=== PATIENT | male | born 1970 ===

== ENCOUNTER 2020-11-30 12:25 | Outpatient (REF) | payer MEDICAID, SELFPAY ==
[2020-11-30 13:59] LABS: Troponin-I High Sensitivity 4.6 ng/L (<3.5-35.0)
== END 2020-11-30 12:26 | disposition home or self-care (01) ==
LOC: HO.LAB 12:25
PROVIDERS: PCP Nurse Practitioner Community Health; Referring Provider Nurse Practitioner Community Health; Visit Provider Internal Medicine Cardiovascular Disease
DX: R07.9 Chest pain, unspecified (principal); I10 Essential (primary) hypertension
CPT/HCPCS: 36415; 84484; 93005; 99212

== ENCOUNTER → 2021-01-10 07:27 | Outpatient (REF) | payer MEDICAID, SELFPAY ==
--- NOTE | 2021-01-10 07:39 | CA_ITS ---
Transthoracic Echocardiogram Patient (Last, First, Middle): Bib Arriola, Gender: Male Date of : 1970 Age: 50 Procedure Date: 01/10/2021 Procedure Type: Transthoracic Echocardiogram Location: OP Height: 180.34 cm Weight: 113.4 kg BSA: 2.32 m2 Heart Rate: bpm BP: 6 / 80 mmHg Business Leader: Referring MD: Bulmaro Rangel MD Symptoms: R07.9 - Chest pain, unspecified Study Quality: Good ECG Rhythm: Sinus with extra beats Conclusions: - Normal left ventricular size and systolic function. - Diastolic function is normal for age. - Mildly increased right ventricular cavity size. There is normal right ventricular systolic function. - There is mild dilatation of the ascending aorta. Findings Left Ventricle Normal left ventricular size and systolic function. There is mildly increased left ventricular wall thickness. The visually estimated ejection fraction is between 60-65%. There is no evidence of regional wall motion abnormalities. Diastolic function is normal for age. Right Ventricle Mildly increased right ventricular cavity size. There is normal right ventricular systolic function. Atria Both atria are normal in size. Aortic Valve Normal aortic valve structure and function. There is no aortic valve stenosis. There is no aortic valve regurgitation. Mitral Valve Normal mitral valve structure and function. There is no mitral valve regurgitation. There is no mitral valve stenosis. Pulmonic Valve Normal pulmonic valve structure and function. There is trace pulmonic valve regurgitation. Tricuspid Valve Normal tricuspid valve structure and function. There is trace tricuspid valve regurgitation. Normal right atrial pressure. There is no evidence of pulmonary hypertension. Great Vessels There is mild dilatation of the ascending aorta. The visualized portions of the pulmonary artery and branches are normal. Venous The inferior vena cava is normal in size and collapses greater than 50% with inspiration. Pericardium/Pleural There is no evidence of pericardial effusion. Prior Study Comparison Changes noted compared to prior study dated: 02/16/2019. Mild dilation of aorta. In some views RV appears mildly dilated. Measurements 2D Linear Measurements IVSd: 1.23 0.6-0.9/0.6-1.0 cm LVIDd: 4.32 3.9-5.3/4.2-5.9 cm LVIDd Index: 1.86 2.4-3.2/2.2-3.1 cm/m2 LVIDs: 2.82 2.0-3.6 cm LVPWd: 1.23 0.7-1.1 cm Ao Root: 3.20 2.1-3.5 cm LA Diam: 4.40 2.7-3.8/3.0-4.0 cm LAIDs Index: 1.90 1.5-2.3 cm/m2 LV Mass: 240.29 67-162/88-224 g LV Mass Index: 103.57 43-95/49-115 g/m2 LVOT Diam: 2.10 3.0+(-)1.3 cm Mitral Valve MV Pk E: 0.75 MV PK A: 0.73 MV Decel Time: 190.00 E/A: 1.00 E'Lateral: 12.10 E'Medial: 6.74 E/E' Med: 11.10 E/E' Lat: 6.20 PHT: 56.00 MVA PHT: 3.93 Decel Howard: 3.93 Aortic Valve AoV Pk Ervin: 1.33 AoV Mn Ervin: 0.86 AoV VTI: 0.33 AoV Pk Grad: 7.00 Aov Mn Grad: 4.00 KRISTINE Cont.VTI: 2.47 LVOT LVOT Pk Ervin: 0.99 LVOT Mn Ervin: 0.63 LVOT VTI: 0.23 LVOT Pk Grad: 4.00 LVOT Mn Grad: 2.00 LVOT Diam: 2.10 LVOT Area: 3.46 Diastolic Function MV Pk E: 0.75 MV Pk A: 0.73 E/A: 1.00 E'Medial: 6.74 E/E' Med: 11.10 E' Laterial: 12.10 E/E' Lat: 6.20 Tricuspid Valve TR Pk Ervin: 2.33 TR Pk Grad: 22.00 RVSP: 26.00 Great Vessels Aorta Ao Root-2D: 3.20 2.0-3.7 cm Ao Asc: 3.50 2.1-3.4 cm Pulmonary Valve PV Pk Ervin: 1.13 Peak PV Grad: 5.00 Updated in Other Vendor System with Status of Final Bulmaro Rangel MD electronically signed on 01/11/2021 9:10:55 AM with status of Final
== END ==
LOC: HO.CARD 07:27
PROVIDERS: PCP Nurse Practitioner Community Health; Visit Provider Internal Medicine Cardiovascular Disease
DX: R07.9 Chest pain, unspecified (principal)
CPT/HCPCS: 93306

== ENCOUNTER → 2021-01-11 09:11 | Outpatient (BNVA) | payer MEDICAID, SELFPAY | PROVIDERS: PCP Nurse Practitioner Community Health; Referring Provider Nurse Practitioner Community Health; Visit Provider Internal Medicine Cardiovascular Disease | DX: I10 Essential (primary) hypertension (principal); R55 Syncope and collapse; G47.30 Sleep apnea, unspecified | CPT/HCPCS: 99212 ==

== ENCOUNTER 2021-01-25 21:40 | Observation (INO) | payer MEDICAID, SELFPAY ==
--- NOTE | ~2021-01-25 | XR_ITS ---
EXAMINATION: XR CHEST CLINICAL INFORMATION: Chest pain COMPARISON: 03/29/2019 TECHNIQUE: Frontal view of the chest was obtained. FINDINGS: Lungs are mildly hypoinflated compared to the prior exam. Again seen is anterior cervical fusion spine hardware. Otherwise, no significant abnormality is noted involving the heart, lungs, mediastinum, bony thorax or soft tissues. XR/XR chest 1V IMPRESSION: No acute intrathoracic disease
[2021-01-25 21:43] VITALS: BP 154/77; PULSE 72; RESP 18; TEMP 36.6; O2SAT 96; BMI 35.1
--- NOTE | 2021-01-25 21:48 | ECG_ITS ---
Test Reason : CP Blood Pressure : / mmHG Vent. Rate : 074 BPM Atrial Rate : 074 BPM P-R Int : 124 ms QRS Dur : 098 ms QT Int : 394 ms P-R-T Axes : 036 021 -03 degrees QTc Int : 437 ms Sinus rhythm with frequent Premature ventricular complexes Nonspecific T wave abnormality Inferior leads Lateral leads Abnormal ECG When compared with ECG of 29-MAR-2019 19:31, Premature ventricular complexes are now Present T wave inversion more evident in Inferior leads Referred By: Generic ED Physician Electronically Signed By:ANTONIO BLANCO MD
--- NOTE | 2021-01-25 22:12 | ED_ITS ---
HPI - Chest Pain General Chief Complaint: Chest Pain Stated Complaint: nausea,chest pain Time Seen by Provider: 01/25/21 22:12 Source: patient Mode of arrival: ambulatory Limitations: no limitations History of Present Illness HPI narrative: Patient's history of vasovagal syncope, hypertension had a Holter monitoring done in 2019 which showed monomorphic PVCs stress test was negative headache 2D echo which was normal LV function with mild right ventricular dilatation with questionable sleep apnea syndrome dosing the head custodian 2 weeks ago comes here for 3 days of nausea, just prior to arrival around 21:00 while is resting notice episode of palpitation lasted for few seconds associated with chest pain going to the neck patient got scared at this time denies any chest pain or palpitation no dizziness no loss of consciousness no syncope Related Data Home Medications Medication Instructions Recorded Confirmed amlodipine 5 mg tablet 5 mg PO DAILY 11/30/20 01/25/21 atorvastatin 20 mg tablet 20 mg PO DAILY 11/30/20 01/25/21 cetirizine 10 mg capsule (Zyrtec) 10 mg PO DAILY 11/30/20 01/25/21 metformin 750 mg tablet,extended 750 mg PO BID tab 11/30/20 01/25/21 release 24 hr meloxicam 15 mg tablet 1 tab PO DAILY 01/25/21 01/25/21 Allergies Allergy/AdvReac Type Severity Reaction Status Date / Time No Known Allergies Allergy Verified 01/25/21 21:43 [No Known Allergies*] Review of Systems Review of Systems: Yes all other systems are reviewed and are negative PMFSH Past Medical History Medical History Syncope Surgical History H/O neck surgery Hx of hernia repair Family History Family History Father Myocardial infarct Diabetes CVD (cardiovascular disease) Mother Diabetes Social History Social History Alcohol intake: never Patient Tobacco Use Status: Never used Tobacco Use of substances other than those prescribed or required for medical reasons: No Substance Use Type: Marijuana Advance Directives: No Advance Directives Information Provided: No Physical Exam Vital Signs: Vital Signs: Last Vital Signs Temp 98 F 01/25/21 21:43 Pulse 72 01/25/21 21:43 Resp 18 01/25/21 21:43 BP 154/77 H 01/25/21 21:43 Pulse Ox 96 01/25/21 21:43 Body Mass Index 35.1 Appearance: Alert. Oriented X3. No acute distress. Eyes: PERRLA, No Nystagmus ENT: Pharynx normal. Oral Mucosa moist Neck: Normal inspection. Neck supple. CVS: Normal heart rate and rhythm. Pulses normal. Occasional PVCs Respiratory: No respiratory distress. Equal air entry bilateral, no wheezing/rales/rhonchi Abdomen: Soft and nontender. Bowel sounds are present, no mass palpable, no CVA tenderness Skin: Skin warm and dry. Normal skin color. Normal skin turgor. Extremities: No lower extremity edema. No calf tenderness Neuro: Oriented X 3. No motor deficit. No sensory deficit.No cerebellar signs , cranial nerves II-XII intact MDM - Chest Pain MDM Narrative Medical decision making narrative: Patient with episode of palpitation with chest discomfort likely had a run of PVCs during stay in the ER patient has unifocal PVCs some time had bigeminy rectal is normal. Case discussed with Dr. Rangel head custodian plan to admit as he never had similar symptoms in the past for further evaluation of palpitation Medical Records Data Attestation: I reviewed the patient's medical records. Lab Data Attestation: I reviewed the patient's lab results. Result diagrams: 01/25/21 22:37 01/25/21 22:37 Labs: Lab Results 01/25/21 01/25/21 01/25/21 Range/Units 22:37 22:37 22:37 WBC 11.8 H (4.8-10.8) X10*3/uL RBC 4.56 L (4.60-5.80) X10*6/uL Hgb 14.4 (14.0-18.0) g/dl Hct 39.8 L (42-52) % MCV 87.3 (80-98) fL MCH 31.6 (27.0-33.0) pg MCHC 36.2 H (31.0-36.0) g/dl RDW 12.0 (11.0-16.0) % Plt Count 253 (160-400) X10*3/uL MPV 10.1 (9.4-12.4) fL Immature Gran % (Auto) 0.3 (0.0-0.4) % Neut % (Auto) 58.0 (45-73) % Lymph % (Auto) 31.6 (20-40) % [place] % (Auto) 7.9 (2-11) % Eos % (Auto) 1.9 (0-4) % Baso % (Auto) 0.3 (0-2) % Lymph # (Auto) 3.7 (1.2-4.9) X10*3/uL [place] # (Auto) 0.9 (0.1-1.2) X10*3/uL Eos # (Auto) 0.2 (0.0-0.4) X10*3/uL Baso # (Auto) 0.0 (0.0-0.2) X10*3/uL Abs Immat Gran (auto) 0.04 H (0.00-0.03) X10*3/uL Absolute Neuts (auto) 6.8 (2.0-8.3) X10*3/uL Absolute Nucleated RBC 0.000 (0.0-0.012) X10*3/uL Nucleated RBC % (auto) 0.0 (0.0-0.2) /100WBC Sodium 137 (135-145) mmol/L Potassium 3.8 (3.3-5.1) mmol/L Chloride 103 (96-108) mmol/L Carbon Dioxide 20 L (22-29) mmol/L Anion Gap 18 (12-20) BUN 14 (9-16) mg/dL Creatinine 1.04 (0.5-1.4) mg/dL Estim Creat Clear Calc 110.4 Estimated GFR > 60 Random Glucose 309 H (60-115) mg/dL Calcium 9.7 (8.4-10.2) mg/dL Total Bilirubin 0.4 (0.0-1.0) mg/dL AST 14 (5-37) U/L ALT 16 (0-40) U/L Alkaline Phosphatase 85 (39-117) U/L Troponin I High Sens 4.6 (<3.5-35.0) ng/L Total Protein 7.1 (6.5-8.0) g/dL Albumin 4.2 (3.5-5.0) g/dL COVID-19 ([facility]) (Negative) COVID-19 Clin Com 01/25/21 Range/Units 22:37 WBC (4.8-10.8) X10*3/uL RBC (4.60-5.80) X10*6/uL Hgb (14.0-18.0) g/dl Hct (42-52) % MCV (80-98) fL MCH (27.0-33.0) pg MCHC (31.0-36.0) g/dl RDW (11.0-16.0) % Plt Count (160-400) X10*3/uL MPV (9.4-12.4) fL Immature Gran % (Auto) (0.0-0.4) % Neut % (Auto) (45-73) % Lymph % (Auto) (20-40) % [place] % (Auto) (2-11) % Eos % (Auto) (0-4) % Baso % (Auto) (0-2) % Lymph # (Auto) (1.2-4.9) X10*3/uL [place] # (Auto) (0.1-1.2) X10*3/uL Eos # (Auto) (0.0-0.4) X10*3/uL Baso # (Auto) (0.0-0.2) X10*3/uL Abs Immat Gran (auto) (0.00-0.03) X10*3/uL Absolute Neuts (auto) (2.0-8.3) X10*3/uL Absolute Nucleated RBC (0.0-0.012) X10*3/uL Nucleated RBC % (auto) (0.0-0.2) /100WBC Sodium (135-145) mmol/L Potassium (3.3-5.1) mmol/L Chloride (96-108) mmol/L Carbon Dioxide (22-29) mmol/L Anion Gap (12-20) BUN (9-16) mg/dL Creatinine (0.5-1.4) mg/dL Estim Creat Clear Calc Estimated GFR Random Glucose (60-115) mg/dL Calcium (8.4-10.2) mg/dL Total Bilirubin (0.0-1.0) mg/dL AST (5-37) U/L ALT (0-40) U/L Alkaline Phosphatase (39-117) U/L Troponin I High Sens (<3.5-35.0) ng/L Total Protein (6.5-8.0) g/dL Albumin (3.5-5.0) g/dL COVID-19 ([facility]) Negative (Negative) COVID-19 Clin Com See Note ECG Data ECG #1: Attestation: I personally reviewed and interpreted this ECG as follows: Interpretation: Normal sinus rhythm heart rate 74 beats per minute unifocal frequent PVCs, nonspecific ST T wave changes no acute ischemia Discharge Plan Discharge Clinical Impression: Palpitations Chest pain Qualifiers: Chest pain type: precordial pain Qualified Code(s): R07.2 - Precordial pain Patient Disposition: Admitted As Inpatient
[2021-01-25 22:43] LABS: Basophils Percent Auto 0.3 % (0-2); Eosinophils Absolute Auto 0.2 X10*3/uL (0.0-0.4); Eosinophils Percent Auto 1.9 % (0-4); Hematocrit 39.8 % (42-52); Hemoglobin 14.4 g/dl (14.0-18.0); Imm Gran Abs Auto 0.04 X10*3/uL (0.00-0.03); Imm Gran Pct Auto 0.3 % (0.0-0.4); Lymphocytes Absolute Auto 3.7 X10*3/uL (1.2-4.9); Lymphocytes Percent Auto 31.6 % (20-40); Mean Corpuscular HGB Conc 36.2 g/dl (31.0-36.0); Mean Corpuscular Hemoglobin 31.6 pg (27.0-33.0); Mean Corpuscular Volume 87.3 fL (80-98); Mean Platelet Volume 10.1 fL (9.4-12.4); Monocytes Absolute Auto 0.9 X10*3/uL (0.1-1.2); Monocytes Percent Auto 7.9 % (2-11); Neutrophils Absolute Auto 6.8 X10*3/uL (2.0-8.3); Platelet Count 253 X10*3/uL (160-400); Red Blood Count 4.56 X10*6/uL (4.60-5.80); White Blood Count 11.8 X10*3/uL (4.8-10.8)
[2021-01-25 22:44] LABS: MANUAL DIFF FLAG NO
[2021-01-25 22:58] LABS: COVID-19 Test Negative (Negative); IDNOW Serial# 55D5AD1C
[2021-01-25 23:05] LABS: Troponin-I High Sensitivity 4.6 ng/L (<3.5-35.0)
[2021-01-25 23:10] LABS: Alanine Aminotransferase 16 U/L (0-40); Albumin Level 4.2 g/dL (3.5-5.0); Alkaline Phosphatase 85 U/L (39-117); Anion Gap 18 (12-20); Aspartate Amino Transferase 14 U/L (5-37); Bilirubin Total 0.4 mg/dL (0.0-1.0); Blood Urea Nitrogen 14 mg/dL (9-16); Calcium 9.7 mg/dL (8.4-10.2); Carbon Dioxide 20 mmol/L (22-29); Chloride 103 mmol/L (96-108); Creatinine Clr Calc Pharmacy 110.4; Estimated Glomerular Filt Rate > 60; Glucose Random 309 mg/dL (60-115); Potassium 3.8 mmol/L (3.3-5.1); Sodium 137 mmol/L (135-145); Total Protein 7.1 g/dL (6.5-8.0)
--- NOTE | 2021-01-25 23:39 | PM.IMHP ---
History of Present Illness Date of Service: 01/25/21 Chief Complaint: Chest pain/palpitations 50-year-old male with a past medical history of hypertension, hyperlipidemia, diabetes, history of COVID-19 infection, history of PVCs; presented to the hospital today with a chief complaint of palpitations/chest discomfort. Patient reported that he was sitting in his recliner and suddenly felt heart racing followed by he had mild chest discomfort; pressure-like; nonradiating no associated lightheadedness dizziness or diaphoresis. Denies any associated nausea vomiting or diarrhea. Denies any urinary symptoms. Symptoms currently resolved. Review of all other systems is negative except mentioned above ER course: Per ER team patient is benign exam; EKG was nonischemic except for noted PVCs; troponins are flat; discussed with cardiology Dr. mi who recommended admission for further evaluation. [facility] Medical History Syncope Family History Father Myocardial infarct Diabetes CVD (cardiovascular disease) Mother Diabetes Pertinent family history: As mentioned above Surgical History H/O neck surgery Hx of hernia repair Social History Alcohol intake: never Patient Tobacco Use Status: Never used Tobacco Use of substances other than those prescribed or required for medical reasons: No Substance Use Type: Marijuana Advance Directives: No Advance Directives Information Provided: No Meds Allergies Allergy/AdvReac Type Severity Reaction Status Date / Time No Known Allergies Allergy Verified 01/25/21 21:43 [No Known Allergies*] Active Medications: Current Medications Acetaminophen (Acetaminophen 325 Mg Tablet) 650 mg PO Q6H PRN PRN Reason: Pain, Mild (Pain Scale 1-3) Enoxaparin Sodium (Enoxaparin Sodium 40 Mg/0.4 Ml Syringe) 40 mg SUBCUT Q24H REGULO Sodium Chloride (Ns) 1,000 mls @ 75 mls/hr IVCONT .[id number] REGULO Melatonin (Melatonin 3 Mg Tablet) 6 mg PO BEDTIME PRN PRN Reason: Insomnia Nitroglycerin (Nitroglycerin 0.4 Mg Tab.Subl) 0.4 mg SUBLINGUAL Q5MX3 PRN PRN Reason: Chest Pain Senna (Sennosides 8.6 Mg Tablet) 17.2 mg PO BEDTIME PRN PRN Reason: Constipation Sodium Chloride (0.9 % Sodium Chloride Flush 3 Ml Syringe) 3 ml IVFLUSH QSHIFT [facility] Home Medications Medication Instructions Recorded Confirmed Last Taken Type amlodipine 5 mg tablet 5 mg PO DAILY 11/30/20 01/25/21 01/25/21 History atorvastatin 20 mg tablet 20 mg PO DAILY 11/30/20 01/25/21 01/25/21 History cetirizine 10 mg capsule (Zyrtec) 10 mg PO DAILY 11/30/20 01/25/21 01/25/21 History metformin 750 mg tablet,extended 750 mg PO BID tab 11/30/20 01/25/21 01/25/21 History release 24 hr meloxicam 15 mg tablet 1 tab PO DAILY 01/25/21 01/25/21 01/25/21 History Physical Exam Vital Signs and Narrative: Vital Signs: Last Vital Signs Temp 98 F 01/25/21 21:43 Pulse 72 01/25/21 21:43 Resp 18 01/25/21 21:43 BP 154/77 H 01/25/21 21:43 Pulse Ox 96 01/25/21 21:43 Body Mass Index 35.1 Gen: Appears be in no acute distress HEENT: NCAT, Moist mucosa. Pulmonary: Vesicular breath sounds, fair air entry CVS: Normal S1-S2 Abdomen: BS+, Soft, Nontender Extremities: Warm well perfused Neuro: Alert and awake. Results Labs CBC and Chem 7: 01/25/21 22:37 01/25/21 22:37 Labs: Laboratory Results - last 24 hr 01/25/21 01/25/21 01/25/21 22:37 22:37 22:37 MCV 87.3 MCH 31.6 MCHC 36.2 H RDW 12.0 Plt Count 253 MPV 10.1 Immature Gran % (Auto) 0.3 Neut % (Auto) 58.0 Lymph % (Auto) 31.6 [place] % (Auto) 7.9 Eos % (Auto) 1.9 Baso % (Auto) 0.3 Lymph # (Auto) 3.7 [place] # (Auto) 0.9 Eos # (Auto) 0.2 Baso # (Auto) 0.0 Abs Immat Gran (auto) 0.04 H Absolute Neuts (auto) 6.8 Absolute Nucleated RBC 0.000 Nucleated RBC % (auto) 0.0 Anion Gap 18 Estim Creat Clear Calc 110.4 Estimated GFR > 60 Random Glucose 309 H Calcium 9.7 Total Bilirubin 0.4 AST 14 ALT 16 Alkaline Phosphatase 85 Troponin I High Sens 4.6 Total Protein 7.1 Albumin 4.2 COVID-19 ([facility]) COVID-19 Clin Com 01/25/21 22:37 MCV MCH MCHC RDW Plt Count MPV Immature Gran % (Auto) Neut % (Auto) Lymph % (Auto) [place] % (Auto) Eos % (Auto) Baso % (Auto) Lymph # (Auto) [place] # (Auto) Eos # (Auto) Baso # (Auto) Abs Immat Gran (auto) Absolute Neuts (auto) Absolute Nucleated RBC Nucleated RBC % (auto) Anion Gap Estim Creat Clear Calc Estimated GFR Random Glucose Calcium Total Bilirubin AST ALT Alkaline Phosphatase Troponin I High Sens Total Protein Albumin COVID-19 ([facility]) Negative COVID-19 Clin Com See Note Imaging Radiologist's Impressions: Impressions Chest X-Ray 01/25/21 21:48 IMPRESSION: No acute intrathoracic disease Assessment and Plan (1) Palpitations: Status: Acute (2) Chest pain: Qualifiers: Chest pain type: precordial pain Qualified Code(s): R07.2 - Precordial pain Status: Acute (3) Diabetes: Status: Acute 50-year-old male with a past medical history of hypertension, hyperlipidemia, diabetes, history of COVID-19 infection, history of PVCs; presented to the hospital today with a chief complaint of palpitations/chest discomfort. Palpitations/chest discomfort: EKG showed normal sinus rhythm/PVCs. Telemetry Cycle cardiac enzymes Patient's echocardiogram in 01/10/2021 showed Normal LV and RV function; There is mildly increased left ventricular wall thickness.? EF 60-65%.? Mildly increased right ventricular cavity size.? Cardiology consult Sublingual nitroglycerin p.r.n. d dimer pending History of hypertension/hyperlipidemia: Continue home amlodipine/statin History of diabetes: Insulin sliding scale DVT prophylaxis: Lovenox Code status: Full code Quality Stroke Does the patient have a stroke diagnosis?: No VTE Prior VTE?: No VTE Risk Level:: Medical - moderate - high VTE Device Contraindication: Treatment Not Indicated VTE Drug Contraindication: N/A - Med Ordered
[2021-01-26] VITALS (9 sets, daily range): BP systolic 139–172; BP diastolic 78–91; PULSE 66–80; RESP 16; TEMP 36.3; O2SAT 98
[2021-01-26] MEDS: 0.9 % Sodium Chloride 1,000 ML 75 ML IVCONT (00:06)
[2021-01-26] MEDS: amLODIPine Besylate 5 MG TABLET PO ×2 (01:02→11:45)
[2021-01-26] MEDS: Enoxaparin Sodium 40 MG/0.4 ML SYRINGE SUBCUT (01:02)
[2021-01-26] MEDS: 0.9 % Sodium Chloride Flush 3 ML SYRINGE IVFLUSH ×2 (01:05→09:52)
[2021-01-26 03:11] LABS: MANUAL DIFF FLAG NO
[2021-01-26 03:13] LABS: Basophils Percent Auto 0.3 % (0-2); Eosinophils Absolute Auto 0.3 X10*3/uL (0.0-0.4); Eosinophils Percent Auto 2.6 % (0-4); Hemoglobin 13.8 g/dl (14.0-18.0); Imm Gran Abs Auto 0.03 X10*3/uL (0.00-0.03); Imm Gran Pct Auto 0.3 % (0.0-0.4); Lymphocytes Absolute Auto 3.9 X10*3/uL (1.2-4.9); Lymphocytes Percent Auto 35.8 % (20-40); Mean Corpuscular HGB Conc 35.4 g/dl (31.0-36.0); Mean Corpuscular Hemoglobin 31.4 pg (27.0-33.0); Mean Corpuscular Volume 88.6 fL (80-98); Mean Platelet Volume 9.9 fL (9.4-12.4); Monocytes Absolute Auto 0.9 X10*3/uL (0.1-1.2); Monocytes Percent Auto 8.2 % (2-11); Neutrophils Absolute Auto 5.7 X10*3/uL (2.0-8.3); Neutrophils Percent Auto 52.8 % (45-73); Platelet Count 231 X10*3/uL (160-400); Red Cell Distribution Width 12.1 % (11.0-16.0); White Blood Count 10.9 X10*3/uL (4.8-10.8)
[2021-01-26 03:22] LABS: D Dimer < 200 NG/ML
[2021-01-26 03:40] LABS: Anion Gap 12 (12-20); Blood Urea Nitrogen 13 mg/dL (9-16); Carbon Dioxide 25 mmol/L (22-29); Chloride 105 mmol/L (96-108); Estimated Glomerular Filt Rate > 60; Glucose Random 183 mg/dL (60-115); Potassium 3.8 mmol/L (3.3-5.1); Sodium 138 mmol/L (135-145)
[2021-01-26 07:20] LABS: Glucose, Whole Blood 182 mg/dL (60-115)
[2021-01-26] MEDS: Insulin Lispro 100 UNIT/ML 3 ML VIAL SUBCUT (07:21)
--- NOTE | 2021-01-26 08:15 | PC.NURSE ---
pt CBG checked before breakfast, 182. unable to document in computer.
[2021-01-26 09:30] LABS: Thyroid Stimulating Hormone 1.13 uIU/mL (0.32-4.0)
[2021-01-26] MEDS: Aspirin 81 MG TAB.CHEW PO (09:52)
[2021-01-26] MEDS: Loratadine 10 MG TABLET PO (09:52)
--- NOTE | 2021-01-26 09:55 | MHC.CM.PN ---
Attempted to meet with patient in regards to discharge planning. Nursing care currently being provided. Will attempt to meet again.Continue to monitor for d/c needs.
--- NOTE | 2021-01-26 11:11 | PM.CNCAR ---
History of Present Illness History of Present Illness Date of Service: 01/26/21 Requesting physician: Sami Garrett Chief complaint: Chest pain Narrative: 50-year-old gentleman was background history of hypertension, syncope and palpitations who is presenting with sharp left-sided chest pain. He said he was not feeling well and diarrhea. Yesterday he was lying down and after lying down his left side for 10 minutes he had sharp shooting sensation from the chest to the left side of the neck lasting for 1 sec. He said he was very concerned and decided to come to the emergency department. He has previous history of PVCs and has stress testing in the past which was normal. Echocardiography showed mildly abnormal right ventricle and he was advised to undergo sleep study. He previously had syncope which is likely vasovagal syncope and he is waiting to undergo tilt-table testing. Labs and EKG reviewed and no significant concern is noticed. [facility] Past Medical History Medical History Syncope Family History Family History Father Myocardial infarct Diabetes CVD (cardiovascular disease) Mother Diabetes Surgical History Surgical History H/O neck surgery Hx of hernia repair Social History Social History Alcohol intake: never Patient Tobacco Use Status: Never used Tobacco Use of substances other than those prescribed or required for medical reasons: No Substance Use Type: Marijuana Advance Directives: No Advance Directives Information Provided: No Meds Allergies Allergy/AdvReac Type Severity Reaction Status Date / Time No Known Allergies Allergy Verified 01/25/21 21:43 [No Known Allergies*] Active Medications: Current Medications Acetaminophen (Acetaminophen 325 Mg Tablet) 650 mg PO Q6H PRN PRN Reason: Pain, Mild (Pain Scale 1-3) Aspirin (Aspirin 81 Mg Tab.Chew) 81 mg PO DAILY [facility] Last Admin: 01/26/21 09:52 Dose: 81 mg Documented by: Atorvastatin Calcium (Atorvastatin Calcium 20 Mg Tablet) 20 mg PO BEDTIME [facility] Dextrose (Dextrose 50 % 25 Gm/50 Ml Vial) 25 gm IVPUSH Q15M PRN; Protocol PRN Reason: per Hypoglycemia Standing Ord. Enoxaparin Sodium (Enoxaparin Sodium 40 Mg/0.4 Ml Syringe) 40 mg SUBCUT Q24H [facility] Last Admin: 01/26/21 01:02 Dose: 40 mg Documented by: Glucose (Glucose Gel 15 Gm Gel..Gram.) 15 gm PO Q15M PRN; Protocol PRN Reason: per Hypoglycemia Standing Ord. Sodium Chloride (Ns) 1,000 mls @ 75 mls/hr IVCONT .[id number] [facility] Last Admin: 01/26/21 00:06 Dose: 75 mls/hr Documented by: Insulin Human Lispro (Insulin Lispro 100 Unit/Ml 3 Ml Vial) 0 unit SUBCUT QIDACHS [facility]; Protocol Last Admin: 01/26/21 07:21 Dose: 2 unit Documented by: Loratadine (Loratadine 10 Mg Tablet) 10 mg PO DAILY [facility] Last Admin: 01/26/21 09:52 Dose: 10 mg Documented by: Melatonin (Melatonin 3 Mg Tablet) 6 mg PO BEDTIME PRN PRN Reason: Insomnia Nitroglycerin (Nitroglycerin 0.4 Mg Tab.Subl) 0.4 mg SUBLINGUAL Q5MX3 PRN PRN Reason: Chest Pain Senna (Sennosides 8.6 Mg Tablet) 17.2 mg PO BEDTIME PRN PRN Reason: Constipation Sodium Chloride (0.9 % Sodium Chloride Flush 3 Ml Syringe) 3 ml IVFLUSH QSHIFT [facility] Last Admin: 01/26/21 09:52 Dose: 3 ml Documented by: Home Medications Medication Instructions Recorded Confirmed Last Taken Type amlodipine 5 mg tablet 5 mg PO DAILY 11/30/20 01/25/21 01/25/21 History atorvastatin 20 mg tablet 20 mg PO DAILY 11/30/20 01/25/21 01/25/21 History cetirizine 10 mg capsule (Zyrtec) 10 mg PO DAILY 11/30/20 01/25/21 01/25/21 History metformin 750 mg tablet,extended 750 mg PO BID tab 11/30/20 01/25/21 01/25/21 History release 24 hr meloxicam 15 mg tablet 1 tab PO DAILY 01/25/21 01/25/21 01/25/21 History Physical Exam Vital Signs: Vital Signs: Last Vital Signs Temp 97.4 F 01/26/21 06:13 Pulse 74 01/26/21 09:58 Resp 16 01/26/21 06:13 BP 172/85 H 01/26/21 09:58 Pulse Ox 98 01/26/21 06:13 Body Mass Index 35.1 GENERAL APPEARANCE: in no acute distress, pleasant. NECK: no carotid bruit, no jugular venous distention. SKIN: no suspicious lesions, warm and dry. HEART: no murmurs, regular rate and rhythm. LUNGS: clear to auscultation bilaterally. ABDOMEN: soft, nontender. EXTREMITIES: no edema. PERIPHERAL PULSES: equal. NEUROLOGIC: No gross deficits, AAO X 3 Results Labs and Meds Result diagrams: 01/26/21 03:07 01/26/21 03:07 Lab results: Laboratory Results - last 24 hr 01/25/21 01/25/21 01/25/21 22:37 22:37 22:37 WBC 11.8 H RBC 4.56 L Hgb 14.4 Hct 39.8 L MCV 87.3 MCH 31.6 MCHC 36.2 H RDW 12.0 Plt Count 253 MPV 10.1 Immature Gran % (Auto) 0.3 Neut % (Auto) 58.0 Lymph % (Auto) 31.6 [place] % (Auto) 7.9 Eos % (Auto) 1.9 Baso % (Auto) 0.3 Lymph # (Auto) 3.7 [place] # (Auto) 0.9 Eos # (Auto) 0.2 Baso # (Auto) 0.0 Abs Immat Gran (auto) 0.04 H Absolute Neuts (auto) 6.8 Absolute Nucleated RBC 0.000 Nucleated RBC % (auto) 0.0 D-Dimer Sodium 137 Potassium 3.8 Chloride 103 Carbon Dioxide 20 L Anion Gap 18 BUN 14 Creatinine 1.04 Estim Creat Clear Calc 110.4 Estimated GFR > 60 POC Glucose Random Glucose 309 H Calcium 9.7 Total Bilirubin 0.4 AST 14 ALT 16 Alkaline Phosphatase 85 Troponin I High Sens 4.6 Total Protein 7.1 Albumin 4.2 TSH COVID-19 ([facility]) COVID-19 Clin Com 01/25/21 01/26/21 01/26/21 22:37 03:07 03:07 WBC 10.9 H RBC 4.40 L Hgb 13.8 L Hct 39.0 L MCV 88.6 MCH 31.4 MCHC 35.4 RDW 12.1 Plt Count 231 MPV 9.9 Immature Gran % (Auto) 0.3 Neut % (Auto) 52.8 Lymph % (Auto) 35.8 [place] % (Auto) 8.2 Eos % (Auto) 2.6 Baso % (Auto) 0.3 Lymph # (Auto) 3.9 [place] # (Auto) 0.9 Eos # (Auto) 0.3 Baso # (Auto) 0.0 Abs Immat Gran (auto) 0.03 Absolute Neuts (auto) 5.7 Absolute Nucleated RBC 0.000 Nucleated RBC % (auto) 0.0 D-Dimer Sodium 138 Potassium 3.8 Chloride 105 Carbon Dioxide 25 Anion Gap 12 BUN 13 Creatinine 0.87 Estim Creat Clear Calc 132.0 Estimated GFR > 60 POC Glucose Random Glucose 183 H D Calcium 9.0 D Total Bilirubin AST ALT Alkaline Phosphatase Troponin I High Sens Total Protein Albumin TSH 1.13 COVID-19 ([facility]) Negative COVID-19 Clin Com See Note 01/26/21 01/26/21 03:07 07:17 WBC RBC Hgb Hct MCV MCH MCHC RDW Plt Count MPV Immature Gran % (Auto) Neut % (Auto) Lymph % (Auto) [place] % (Auto) Eos % (Auto) Baso % (Auto) Lymph # (Auto) [place] # (Auto) Eos # (Auto) Baso # (Auto) Abs Immat Gran (auto) Absolute Neuts (auto) Absolute Nucleated RBC Nucleated RBC % (auto) D-Dimer < 200 Sodium Potassium Chloride Carbon Dioxide Anion Gap BUN Creatinine Estim Creat Clear Calc Estimated GFR POC Glucose 182 H Random Glucose Calcium Total Bilirubin AST ALT Alkaline Phosphatase Troponin I High Sens Total Protein Albumin TSH COVID-19 ([facility]) COVID-19 Clin Com Imaging Radiologist's impression: Impressions Chest X-Ray 01/25/21 21:48 IMPRESSION: No acute intrathoracic disease Assessment and Plan (1) Non-cardiac chest pain: Status: Acute (2) Palpitations: Status: Acute 50-year-old gentleman presenting with sharp left-sided chest pain which is noncardiac in origin. He previously had stress testing which was normal. He has known PVCs. Blood workup and EKG reviewed. EKG showing premature ventricle complexes. He was having PVCs on telemetry at the time of interview and had no symptoms. I think the sharp pain is not related PVCs think is noncardiac in origin. He has been ruled out. He can go home. Thank you for allowing me to participate in the care of your patient. Please feel free to contact me if you have any questions. Procedures Date of Service Date of Service: 01/26/21
--- NOTE | 2021-01-26 11:33 | P.DS_ITS ---
DS: Providers Provider Date of Service: 01/26/21 Date of admission: 01/25/21 23:36 Primary care physician: Bulmaro Rangel MD Consults: 01/25/21 23:36 Consult to Cardiology Routine Consulting Provider: Bulmaro Rangel Reason for consultation: Chest pain/palpitations DS: Diagnosis Discharge Diagnosis (1) Non-cardiac chest pain: Status: Acute (2) Palpitations: Status: Acute DS: Summary Hospital Course Hospital Course: Chief Complaint: Chest pain/palpitations 50-year-old gentleman was background history of hypertension, syncope and palpitations who is presenting with sharp left-sided chest pain.? He said he was not feeling well and had diarrhea after eating a heavy meal, Yesterday he was lying down and after lying down on his left side for 10 minutes he had sharp shooting sensation from the chest to the left side of the neck lasting for few seconds He said he was very concerned and decided to come to the emergency department.? He has previous history of PVCs and has stress testing in the past which was normal.? In the emergency room EKG and labs showed no acute abnormality other than PVCs on EKG patient admitted for close monitoring and treatment for chest pain. Hospital course Patient admitted due to symptoms of chest pain and palpitation, during course of hospitalization patient did not have recurrent bout of chest discomfort or palpitations tele monitor showed no arrhythmia, chest x-ray showed no acute abnormality and D-dimer less than 200, troponins normal, patient seen by milk deliverer Dr. Rangel and he recommended discharge patient home, since his sharp left-sided chest pain appeared noncardiac in origin and not related to PVCs, patient had a normal stress test in the past and since he had no arrhythmia on tele monitor , he has been recommended to have close outpatient follow-up with Cardiology and return to check with any recurrent bout of chest pain. Time Spent with Patient Time attestation: Total time spent providing and/or coordinating discharge services: Discharge coordination time: Greater than 30 minutes Quality: Stroke Does the patient have a stroke diagnosis?: No Physical Exam Vital Signs: Vital Signs: Last Vital Signs Temp 97.4 F 01/26/21 06:13 Pulse 74 01/26/21 09:58 Resp 16 01/26/21 06:13 BP 172/85 H 01/26/21 09:58 Pulse Ox 98 01/26/21 06:13 Body Mass Index 35.1 General alert oriented x3,no acute distress. Neck supple no JVD. CVS regular rate rhythm, Respiratory lungs clear to auscultation, no respiratory distress, no wheeze, no rhonchi. Gastrointestinal abdomen soft, nontender, bowel sounds audible,no guarding , no rigidity. Extremities no clubbing cyanosis or edema. Neuro nonfocal , speech clear. Skin no rash DS: Data Data Completed and Pending Labs on day of discharge: Laboratory Results - last 24 hr 01/25/21 01/25/21 01/25/21 22:37 22:37 22:37 WBC 11.8 H RBC 4.56 L Hgb 14.4 Hct 39.8 L MCV 87.3 MCH 31.6 MCHC 36.2 H RDW 12.0 Plt Count 253 MPV 10.1 Immature Gran % (Auto) 0.3 Neut % (Auto) 58.0 Lymph % (Auto) 31.6 [place] % (Auto) 7.9 Eos % (Auto) 1.9 Baso % (Auto) 0.3 Lymph # (Auto) 3.7 [place] # (Auto) 0.9 Eos # (Auto) 0.2 Baso # (Auto) 0.0 Abs Immat Gran (auto) 0.04 H Absolute Neuts (auto) 6.8 Absolute Nucleated RBC 0.000 Nucleated RBC % (auto) 0.0 D-Dimer Sodium 137 Potassium 3.8 Chloride 103 Carbon Dioxide 20 L Anion Gap 18 BUN 14 Creatinine 1.04 Estim Creat Clear Calc 110.4 Estimated GFR > 60 POC Glucose Random Glucose 309 H Calcium 9.7 Total Bilirubin 0.4 AST 14 ALT 16 Alkaline Phosphatase 85 Troponin I High Sens 4.6 Total Protein 7.1 Albumin 4.2 TSH COVID-19 ([facility]) COVID-19 Clin Com 01/25/21 01/26/21 01/26/21 22:37 03:07 03:07 WBC 10.9 H RBC 4.40 L Hgb 13.8 L Hct 39.0 L MCV 88.6 MCH 31.4 MCHC 35.4 RDW 12.1 Plt Count 231 MPV 9.9 Immature Gran % (Auto) 0.3 Neut % (Auto) 52.8 Lymph % (Auto) 35.8 [place] % (Auto) 8.2 Eos % (Auto) 2.6 Baso % (Auto) 0.3 Lymph # (Auto) 3.9 [place] # (Auto) 0.9 Eos # (Auto) 0.3 Baso # (Auto) 0.0 Abs Immat Gran (auto) 0.03 Absolute Neuts (auto) 5.7 Absolute Nucleated RBC 0.000 Nucleated RBC % (auto) 0.0 D-Dimer Sodium 138 Potassium 3.8 Chloride 105 Carbon Dioxide 25 Anion Gap 12 BUN 13 Creatinine 0.87 Estim Creat Clear Calc 132.0 Estimated GFR > 60 POC Glucose Random Glucose 183 H D Calcium 9.0 D Total Bilirubin AST ALT Alkaline Phosphatase Troponin I High Sens Total Protein Albumin TSH 1.13 COVID-19 ([facility]) Negative COVID-19 Clin Com See Note 01/26/21 01/26/21 03:07 07:17 WBC RBC Hgb Hct MCV MCH MCHC RDW Plt Count MPV Immature Gran % (Auto) Neut % (Auto) Lymph % (Auto) [place] % (Auto) Eos % (Auto) Baso % (Auto) Lymph # (Auto) [place] # (Auto) Eos # (Auto) Baso # (Auto) Abs Immat Gran (auto) Absolute Neuts (auto) Absolute Nucleated RBC Nucleated RBC % (auto) D-Dimer < 200 Sodium Potassium Chloride Carbon Dioxide Anion Gap BUN Creatinine Estim Creat Clear Calc Estimated GFR POC Glucose 182 H Random Glucose Calcium Total Bilirubin AST ALT Alkaline Phosphatase Troponin I High Sens Total Protein Albumin TSH COVID-19 ([facility]) COVID-19 Clin Com Discharge Plan Discharge Patient Disposition: Home, Self-Care Discharge Diagnosis: Chest pain Referrals: Bulmaro Rangel MD [Primary Care Provider] - 1 Week Discharge Medications: Continued meloxicam 15 mg tablet 1 tab PO DAILY RF: 0 amlodipine 5 mg tablet 5 mg PO DAILY RF: 0 atorvastatin 20 mg tablet 20 mg PO DAILY RF: 0 Zyrtec 10 mg capsule 10 mg PO DAILY RF: 0 metformin 750 mg tablet extended release 24 hr 750 mg PO BID RF: 0 Discharge Orders: Discharge Order (Routine); Ordered 01/26/21 Ordered By: Sami Garrett Diet: low fat, low cholesterol Activity on Discharge: As tolerated Stand Alone Forms: Patient Portal Discharge page Care Plan Goals: Chest pain noncardiac in nature resolved Health Concerns: Continue all home medications follow low-cholesterol diet Plan of Treatment: Follow-up with PCP in next 7-10 days Assessment: as above Discharge Date/Time: 01/26/21 15:02
== END 2021-01-26 15:02 | disposition home or self-care (01) ==
LOC: HO.ED 23:39 → HO.EDOVER 23:42 → HO.IMC 01-26 13:31 → HO.EDOVER 01-26 13:39
PROVIDERS: Admitting Provider Hospitalist; Emergency Provider Internal Medicine; PCP Internal Medicine Cardiovascular Disease; Visit Provider Hospitalist
DX: R07.89 Other chest pain (principal); R00.2 Palpitations; I10 Essential (primary) hypertension; R55 Syncope and collapse; I49.3 Ventricular premature depolarization; Z20.822 Contact with and (suspected) exposure to COVID-19; Z79.4 Long term (current) use of insulin; Z79.899 Other long term (current) drug therapy
CPT/HCPCS: 36415; 71045; 80048; 80053; 82947; 84443; 84484; 85025; 85379; 87635; 93005; 96361; 96372; 96374; 99219; 99285; J1650

== ENCOUNTER → 2021-02-13 14:46 | Outpatient (REF) | payer MEDICAID, SELFPAY | LOC: HO.SL 14:46 | PROVIDERS: PCP Nurse Practitioner Community Health; Visit Provider Internal Medicine Cardiovascular Disease | DX: G47.30 Sleep apnea, unspecified (principal) | CPT/HCPCS: 95806 ==

== ENCOUNTER → 2021-02-28 08:24 | Outpatient (BNVA) | payer MEDICAID, SELFPAY | PROVIDERS: PCP Nurse Practitioner Community Health; Referring Provider Internal Medicine Cardiovascular Disease; Visit Provider Psychiatry & Neurology Neurology | DX: G47.33 Obstructive sleep apnea (adult) (pediatric) (principal); G47.00 Insomnia, unspecified | CPT/HCPCS: 99202 ==

== ENCOUNTER → 2021-04-26 11:26 | Outpatient (BNVA) | payer MEDICAID, SELFPAY | PROVIDERS: PCP Nurse Practitioner Community Health; Referring Provider Nurse Practitioner Community Health; Visit Provider Internal Medicine Cardiovascular Disease | DX: G47.30 Sleep apnea, unspecified (principal); R55 Syncope and collapse; I10 Essential (primary) hypertension | CPT/HCPCS: 99212 ==

== ENCOUNTER → 2021-10-09 11:42 | Outpatient (BNVA) | payer MEDICAID, SELFPAY | PROVIDERS: PCP Nurse Practitioner Community Health; Visit Provider Internal Medicine Cardiovascular Disease | DX: R55 Syncope and collapse (principal); I10 Essential (primary) hypertension; Z79.899 Other long term (current) drug therapy | CPT/HCPCS: 93005; 99212 ==

== ENCOUNTER 2021-11-20 05:32 | Emergency (ER) | payer MEDICAID, SELFPAY ==
--- NOTE | ~2021-11-20 | CT_ITS ---
EXAMINATION: CT ANGIOGRAM OF THE CHEST WITH AND WITHOUT CONTRAST (CT PULMONARY ANGIOGRAM FOR PE) CLINICAL INFORMATION: Reason for Exam r/o pe COMPARISON: None TECHNIQUE: Prior to contrast administration, noncontrast localization images were obtained. Subsequently, multidetector volumetric imaging was performed from the thoracic inlet to below the diaphragms following the administration of 65 mL Omnipaque 350 intravenous contrast. No contrast reaction reported Sagittal, coronal, and MIP oblique sagittal reformatted images were obtained on the CT workstation, uploaded to PACS, and reviewed. This CT examination was performed using dose optimization techniques as appropriate, variously including the following: *Automated exposure control *Adjustment of mA and/or kV according to patient size (this includes techniques or standardized protocols for targeted exams where dose is matched to indication/reason for exam; i.e. extremities or head) *Use of iterative reconstruction technique Total exam dose-length product 481 mGy-cm FINDINGS: QUALITY OF STUDY/CONTRAST BOLUS: Satisfactory. PULMONARY ARTERIES: No central or segmental pulmonary emboli. THORACIC AORTA: No aneurysm or dissection. LUNG: The lungs are well-expanded and clear of acute pneumonic consolidation. There is a 3 mm nodule right upper lobe axial image 186/6 no additional appearing nodules, mass or groundglass density seen. PLEURA: No pleural effusion or pneumothorax. MEDIASTINUM: Heart size and the great vessels are normal caliber. No abnormal size mediastinal or hilar lymph nodes or mass seen. The central trachea and the bronchi widely patent. No pericardial effusion seen. No evidence of septal bowing or right heart strain. CHEST WALL/AXILLA: No axillary or internal mammary lymphadenopathy. OSSEOUS STRUCTURES: No aggressive lytic or sclerotic process seen. There is mild ventral spondylosis lower dorsal spine. UPPER ABDOMEN: Unremarkable. No reflux of contrast into the hepatic veins to suggest elevated right heart pressures. CT/CT angio chest PE protocol IMPRESSION: No evidence of PE, aortic dissection or aneurysm. 3 mm nodule right upper lobe. VTE: negative
--- NOTE | ~2021-11-20 | XR_ITS ---
EXAMINATION: XR CHEST CLINICAL INFORMATION: Chest pain COMPARISON: 01/25/2021 TECHNIQUE: 2 views of the chest were obtained. FINDINGS: Cervical fusion hardware. The lungs are well expanded. There is no focal consolidation, edema, or effusion. No pneumothorax. The cardiomediastinal silhouette is within normal limits. No acute osseous abnormality. XR/XR chest 2V IMPRESSION: Clear lungs.
--- NOTE | 2021-11-20 05:47 | ECG_ITS ---
Test Reason : CP Blood Pressure : / mmHG Vent. Rate : 074 BPM Atrial Rate : 074 BPM P-R Int : 136 ms QRS Dur : 092 ms QT Int : 398 ms P-R-T Axes : 059 014 025 degrees QTc Int : 441 ms Normal sinus rhythm Normal ECG When compared with ECG of 25-JAN-2021 21:58, Premature ventricular complexes are no longer Present Referred By: Generic ED Physician Electronically Signed By:HEIDY HUBER
[2021-11-20 06:00] VITALS: BP 134/78; PULSE 72; RESP 16; TEMP 36.7; O2SAT 98; BMI 34.8
[2021-11-20 06:19] LABS: MANUAL DIFF FLAG NO
[2021-11-20 06:21] LABS: Basophils Percent Auto 0.3 % (0-2); Eosinophils Absolute Auto 0.3 X10*3/uL (0.0-0.4); Eosinophils Percent Auto 3.7 % (0-4); Hematocrit 41.9 % (42.0-52.0); Hemoglobin 14.7 g/dl (14.0-18.0); Imm Gran Abs Auto 0.04 X10*3/uL (0.00-0.03); Imm Gran Pct Auto 0.4 % (0.0-0.4); Lymphocytes Absolute Auto 2.6 X10*3/uL (1.2-4.9); Lymphocytes Percent Auto 28.9 % (20-40); Mean Corpuscular HGB Conc 35.1 g/dl (31.0-36.0); Mean Corpuscular Hemoglobin 31.1 pg (27.0-33.0); Mean Corpuscular Volume 88.6 fL (80.0-98.0); Mean Platelet Volume 9.9 fL (9.4-12.4); Monocytes Absolute Auto 0.7 X10*3/uL (0.1-1.2); Neutrophils Absolute Auto 5.3 x10*3/uL (2.0-8.3); Neutrophils Percent Auto 58.7 % (45-73); Platelet Count 263 X10*3/uL (160-400); Red Blood Count 4.73 X10*6/uL (4.60-5.80); Red Cell Distribution Width 11.9 % (11.0-16.0); White Blood Count 9.1 X10*3/uL (4.8-10.8)
[2021-11-20 06:34] LABS: Anion Gap 16 (12-20); Blood Urea Nitrogen 13 mg/dL (9-16); Calcium 9.2 mg/dL (8.4-10.2); Carbon Dioxide 21 mmol/L (22-29); Chloride 103 mmol/L (96-108); Creatinine Clr Calc Pharmacy 121.6; Estimated Glomerular Filt Rate > 60; Glucose Random 244 mg/dL (60-115); Sodium 136 mmol/L (135-145)
[2021-11-20 06:43] LABS: Troponin-I High Sensitivity < 3.5 ng/L (<3.5-35.0)
[2021-11-20 07:12] VITALS: BP 134/78; PULSE 72; RESP 16; TEMP 36.7; O2SAT 98
--- NOTE | 2021-11-20 07:15 | ED.CHESTPAIN ---
HPI - Chest Pain General Chief Complaint: Chest Pain Stated Complaint: chest pain Time Seen by Provider: 11/20/21 07:09 History of Present Illness HPI narrative: This is 51 years old patient presented to the emergency department with chief complaint of left-sided chest pain, the pain is described as a sharp, he stated that he woke up around 02:00 with this complain he states that he was diaphoretic. He has history of diabetes, hypertension. MD complaint: chest pain Onset (ago): hour(s) (4) Timing of current episode: constant Onset: during rest Pain location: left chest Severity: moderate Quality: sharp Exacerbating factors: nothing Context: recent illness Risk Factors Coronary artery disease risk factors: diabetes and hypertension Thoracic aortic dissection risk factors: none Related Data Home Medications Medication Instructions Recorded Confirmed amlodipine 5 mg tablet 5 mg PO DAILY 11/30/20 10/09/21 atorvastatin 20 mg tablet 20 mg PO DAILY 11/30/20 10/09/21 cetirizine 10 mg capsule (Zyrtec) 10 mg PO DAILY 11/30/20 10/09/21 metformin 750 mg tablet,extended 750 mg PO BID 11/30/20 10/09/21 release 24 hr sitagliptin 100 mg tablet (Januvia) 100 mg PO DAILY 04/26/21 10/09/21 meloxicam 15 mg tablet 15 mg PO DAILY 10/09/21 10/09/21 Allergies Allergy/AdvReac Type Severity Reaction Status Date / Time No Known Allergies Allergy Verified 11/20/21 05:58 [No Known Allergies*] Review of Systems Review of Systems: Yes all other systems are reviewed and are negative Cardiovascular: Cardiovascular: Reports no additional cardiovascular complaints Respiratory: Respiratory: Reports no additional respiratory complaints Musculoskeletal: Musculoskeletal: Reports no additional musculoskeletal complaints Neurologic: Reports system reviewed and no additional complaints, except as documented PMF Past Medical History Medical History Diabetes Palpitations Syncope Surgical History H/O neck surgery Hx of hernia repair Family History Family History Father Myocardial infarct Diabetes CVD (cardiovascular disease) Mother Diabetes Social History Social History Alcohol intake: never Patient Tobacco Use Status: Never used Tobacco Substance Use Type: Marijuana Advance Directives: No Advance Directives Information Provided: Yes Physical Exam Vital Signs: Vital Signs: Last Vital Signs Temp 98.1 F 11/20/21 07:12 Pulse 72 11/20/21 07:12 Resp 16 11/20/21 07:12 BP 134/78 11/20/21 07:12 Pulse Ox 98 11/20/21 07:12 O2 Del Method 11/20/21 07:12 BMI result Body Mass Index 34.8 Const: General: cooperative Nutritional Appearance: well nourished Limitations: no limitations HEENT: Head: Yes normal to inspection General nose exam: Normal external nose present Mouth: Normal oral and palatal mucosa present Throat: Yes posterior oropharynx normal Neck: Neck: Yes normal visual inspection and Yes full ROM Chest: Chest palpation & inspection: normal inspection of the chest Resp: Effort & Inspection: normal respiratory effort Auscultation: clear to auscultation bilaterally Cardio: Jugular venous distension: no JVD Rate: regular rate Rhythm: regular rhythm GI: Inspection: Yes normal to inspection Palpation (GI): Soft to palpation, not firm, nontender and no guarding Auscultation: normal bowel sounds Skin: General skin exam: no rashes or lesions noted, elasticity normal and turgor normal Rashes: no rashes Course Reevaluation(s) Reevaluation #1: delta tropi negative,ct chest negative,pain gone now I think he can be d/c home with follow up with PCP MDM - Chest Pain Medical Records Data Attestation: I reviewed the patient's medical records. Lab Data Attestation: I reviewed the patient's lab results. Result diagrams: 11/20/21 06:14 11/20/21 06:14 Labs: Lab Results 11/20/21 11/20/21 11/20/21 Range/Units 06:14 06:14 06:14 WBC 9.1 (4.8-10.8) X10*3/uL RBC 4.73 (4.60-5.80) X10*6/uL Hgb 14.7 (14.0-18.0) g/dl Hct 41.9 L (42.0-52.0) % MCV 88.6 (80.0-98.0) fL MCH 31.1 (27.0-33.0) pg MCHC 35.1 (31.0-36.0) g/dl RDW 11.9 (11.0-16.0) % Plt Count 263 (160-400) X10*3/uL MPV 9.9 (9.4-12.4) fL Immature Gran % (Auto) 0.4 (0.0-0.4) % Neut % (Auto) 58.7 (45-73) % Lymph % (Auto) 28.9 (20-40) % [place] % (Auto) 8.0 (2-11) % Eos % (Auto) 3.7 (0-4) % Baso % (Auto) 0.3 (0-2) % Lymph # (Auto) 2.6 (1.2-4.9) X10*3/uL [place] # (Auto) 0.7 (0.1-1.2) X10*3/uL Eos # (Auto) 0.3 (0.0-0.4) X10*3/uL Baso # (Auto) 0.0 (0.0-0.2) X10*3/uL Abs Immat Gran (auto) 0.04 H (0.00-0.03) X10*3/uL Absolute Neuts (auto) 5.3 (2.0-8.3) x10*3/uL Absolute Nucleated RBC 0.000 (0.0-0.012) X10*3/uL Nucleated RBC % (auto) 0.0 (0.0-0.2) /100WBC D-Dimer High Sensitivty NG/ML Sodium 136 (135-145) mmol/L Potassium 4.0 (3.3-5.1) mmol/L Chloride 103 (96-108) mmol/L Carbon Dioxide 21 L (22-29) mmol/L Anion Gap 16 (12-20) BUN 13 (9-16) mg/dL Creatinine 0.93 (0.5-1.4) mg/dL Estim Creat Clear Calc 121.6 Estimated GFR > 60 Random Glucose 244 H (60-115) mg/dL Calcium 9.2 (8.4-10.2) mg/dL Troponin I High Sens < 3.5 (<3.5-35.0) ng/L 08/22/22 08/22/22 Range/Units 08:09 08:09 WBC (4.8-10.8) X10*3/uL RBC (4.60-5.80) X10*6/uL Hgb (14.0-18.0) g/dl Hct (42.0-52.0) % MCV (80.0-98.0) fL MCH (27.0-33.0) pg MCHC (31.0-36.0) g/dl RDW (11.0-16.0) % Plt Count (160-400) X10*3/uL MPV (9.4-12.4) fL Immature Gran % (Auto) (0.0-0.4) % Neut % (Auto) (45-73) % Lymph % (Auto) (20-40) % [place] % (Auto) (2-11) % Eos % (Auto) (0-4) % Baso % (Auto) (0-2) % Lymph # (Auto) (1.2-4.9) X10*3/uL [place] # (Auto) (0.1-1.2) X10*3/uL Eos # (Auto) (0.0-0.4) X10*3/uL Baso # (Auto) (0.0-0.2) X10*3/uL Abs Immat Gran (auto) (0.00-0.03) X10*3/uL Absolute Neuts (auto) (2.0-8.3) x10*3/uL Absolute Nucleated RBC (0.0-0.012) X10*3/uL Nucleated RBC % (auto) (0.0-0.2) /100WBC D-Dimer High Sensitivty < 150 NG/ML Sodium (135-145) mmol/L Potassium (3.3-5.1) mmol/L Chloride (96-108) mmol/L Carbon Dioxide (22-29) mmol/L Anion Gap (12-20) BUN (9-16) mg/dL Creatinine (0.5-1.4) mg/dL Estim Creat Clear Calc Estimated GFR Random Glucose (60-115) mg/dL Calcium (8.4-10.2) mg/dL Troponin I High Sens < 3.5 (<3.5-35.0) ng/L Imaging Data CT scan - chest: Radiologist's impression: PLEURA: No pleural effusion or pneumothorax. MEDIASTINUM: Heart size and the great vessels are normal caliber. No abnormal size mediastinal or hilar lymph nodes or mass seen. The central trachea and the bronchi widely patent. No pericardial effusion seen.? No evidence of septal bowing or right heart strain. CHEST WALL/AXILLA: No axillary or internal mammary lymphadenopathy. OSSEOUS STRUCTURES: No aggressive lytic or sclerotic process seen. There is mild ventral spondylosis lower dorsal spine. ? UPPER ABDOMEN: Unremarkable.? No reflux of contrast into the hepatic veins to suggest elevated right heart pressures. CT/CT angio chest PE protocol IMPRESSION: No evidence of PE, aortic dissection or aneurysm. ? 3 mm nodule right upper lobe. ? VTE: negative Dictated By: Jorge Thomson MD Signed By: <Electronically signed by Jorge Thomson MD in [place]> 11/20/2140 DD/ 08 ECG Data ECG #1: Pacemaker model: NSR [address]-t changes no ischemia Discharge Plan Discharge Clinical Impression: Chest pain Patient Disposition: Home, Self-Care Instructions: Chest Pain (DC) Additional Instructions: Follow-up with your primary care physician return if you worse Prescriptions: No Action meloxicam 15 mg tablet 15 mg PO DAILY amlodipine 5 mg tablet 5 mg PO DAILY atorvastatin 20 mg tablet 20 mg PO DAILY Zyrtec 10 mg capsule 10 mg PO DAILY metformin 750 mg tablet extended release 24 hr 750 mg PO BID Januvia 100 mg tablet 100 mg PO DAILY Referrals: Mikey Parra NP [Primary Care Provider] - 2 days
[2021-11-20] MEDS: iohexoL 350 MG/ML 100 ML INFUS..BTL 65 ML IV (08:26)
[2021-11-20] MEDS: Ketorolac Tromethamine 30 MG/ML VIAL IVPUSH (08:35)
[2021-11-20 08:45] LABS: Troponin-I High Sensitivity < 3.5 ng/L (<3.5-35.0)
[2021-11-20 08:46] LABS: D Dimer High Sensitivity < 150 NG/ML
== END 2021-11-20 11:29 | disposition home or self-care (01) ==
PROVIDERS: Emergency Provider Emergency Medicine; PCP Nurse Practitioner Community Health
DX: R07.9 Chest pain, unspecified (principal); E11.9 Type 2 diabetes mellitus without complications; I10 Essential (primary) hypertension; F12.90 Cannabis use, unspecified, uncomplicated; Z79.84 Long term (current) use of oral hypoglycemic drugs; Z79.02 Long term (current) use of antithrombotics/antiplatelets; Z79.899 Other long term (current) drug therapy
CPT/HCPCS: 36415; 71046; 71275; 80048; 84484; 85025; 85379; 93005; 96374; 99283; 99284; J1885; Q9967

== ENCOUNTER 2021-11-20 22:32 | Emergency (ER) | payer MEDICAID, SELFPAY ==
--- NOTE | 2021-11-20 22:43 | ECG_ITS ---
Test Reason : chest pain Blood Pressure : / mmHG Vent. Rate : 066 BPM Atrial Rate : 066 BPM P-R Int : 132 ms QRS Dur : 092 ms QT Int : 410 ms P-R-T Axes : 037 020 017 degrees QTc Int : 429 ms Sinus rhythm with frequent Premature ventricular complexes Otherwise normal ECG When compared with ECG of 20-NOV-2021 05:48, Premature ventricular complexes are now Present Referred By: Generic ED Physician Electronically Signed By:HEIDY HUBER
[2021-11-20 22:58] VITALS: BP 127/76; PULSE 63; RESP 18; TEMP 36.6; O2SAT 98; BMI 34.8
[2021-11-20 23:15] LABS: MANUAL DIFF FLAG NO
[2021-11-20 23:16] LABS: Basophils Percent Auto 0.4 % (0-2); Eosinophils Absolute Auto 0.3 X10*3/uL (0.0-0.4); Hematocrit 39.4 % (42.0-52.0); Hemoglobin 13.7 g/dl (14.0-18.0); Imm Gran Abs Auto 0.02 X10*3/uL (0.00-0.03); Imm Gran Pct Auto 0.2 % (0.0-0.4); Lymphocytes Percent Auto 31.4 % (20-40); Mean Corpuscular HGB Conc 34.8 g/dl (31.0-36.0); Mean Corpuscular Hemoglobin 30.8 pg (27.0-33.0); Mean Corpuscular Volume 88.5 fL (80.0-98.0); Mean Platelet Volume 9.7 fL (9.4-12.4); Monocytes Absolute Auto 0.8 X10*3/uL (0.1-1.2); Monocytes Percent Auto 8.5 % (2-11); Neutrophils Absolute Auto 5.4 x10*3/uL (2.0-8.3); Neutrophils Percent Auto 56.5 % (45-73); Platelet Count 257 X10*3/uL (160-400); Red Blood Count 4.45 X10*6/uL (4.60-5.80); White Blood Count 9.5 X10*3/uL (4.8-10.8)
--- NOTE | 2021-11-20 23:32 | ED_ITS ---
HPI - Chest Pain General Chief Complaint: Chest Pain Stated Complaint: chest pain, struggling to breathe Time Seen by Provider: 11/20/21 23:32 Source: patient Mode of arrival: ambulatory Limitations: no limitations History of Present Illness HPI narrative: patient was seen earlier for chest pain, patient had not slept because of the chest pain. Still not sleeping, feels that his heart is jumping. Had negative EKG and troponins. patient states his sugar is high. MD complaint: chest pain Onset (ago): day(s) Timing of current episode: episodic Prior episodes: Yes Onset: during rest Quality: sharp Associated symptoms: other (not sleeping) Risk Factors Coronary artery disease risk factors: none Related Data Home Medications Medication Instructions Recorded Confirmed amlodipine 5 mg tablet 5 mg PO DAILY 11/30/20 10/09/21 atorvastatin 20 mg tablet 20 mg PO DAILY 11/30/20 10/09/21 cetirizine 10 mg capsule (Zyrtec) 10 mg PO DAILY 11/30/20 10/09/21 metformin 750 mg tablet,extended 750 mg PO BID 11/30/20 10/09/21 release 24 hr sitagliptin 100 mg tablet (Januvia) 100 mg PO DAILY 04/26/21 10/09/21 meloxicam 15 mg tablet 15 mg PO DAILY 10/09/21 10/09/21 Allergies Allergy/AdvReac Type Severity Reaction Status Date / Time No Known Allergies Allergy Verified 11/20/21 05:58 [No Known Allergies*] Review of Systems Constitutional: Constitutional: Reports no additional constitutional complaints Eyes: Eyes: Reports no additional eye complaints ENT: Denies dizziness Cardiovascular: Cardiovascular: Reports no additional cardiovascular complaints Respiratory: Respiratory: Reports as per HPI Gastrointestinal: Gastrointestinal: Reports no additional gastrointestinal complaints Musculoskeletal: Musculoskeletal: Reports no additional musculoskeletal complaints Integumentary/Breasts: Skin/Breast: Denies rash Neurologic: Reports system reviewed and no additional complaints, except as do cumented, Denies dizziness and Denies Sensory deficit (Neuro) Psychiatric: Psychiatric: Denies anxiety PMFSH Past Medical History Medical History Diabetes Palpitations Syncope Surgical History H/O neck surgery Hx of hernia repair Family History Family History Father Myocardial infarct Diabetes CVD (cardiovascular disease) Mother Diabetes Social History Social History Alcohol intake: never Patient Tobacco Use Status: Never used Tobacco Substance Use Type: Marijuana Advance Directives: No Advance Directives Information Provided: No Physical Exam Vital Signs: Vital Signs: Last Vital Signs Temp 97.9 F 11/20/21 22:58 Pulse 60 11/20/21 23:51 Resp 16 11/20/21 23:51 BP 148/65 H 11/20/21 23:51 Pulse Ox 97 11/20/21 23:51 O2 Del Method 11/20/21 23:51 BMI result Body Mass Index 34.8 Const: General: healthy appearing Nutritional Appearance: average body habitus Orientation/consciousness: oriented to person and patient oriented x3 Limitations: no limitations HEENT: Head: Yes normal to inspection Ears: external ears normal General nose exam: Normal external nose present Mouth: Normal oral and palatal mucosa present and oropharynx normal Throat: Yes posterior oropharynx normal Eyes: General: appearance normal, both eyes and all related structures Neck: Other: supple Neck: Yes normal visual inspection Chest: Other: on the 4th beat has a premature contraction. Resp: Auscultation: clear to auscultation bilaterally Cardio: Jugular venous distension: no JVD Rate: regular rate Rhythm: regular rhythm Heart sounds: S1 normal heart sound present and S2 normal heart sound present GI: Inspection: Yes normal to inspection Palpation (GI): Soft to palpation, nontender and No hepatosplenomegaly present Auscultation: normal bowel sounds : General: Yes no CVA tenderness Back/Spine/Pelvis: Back: no CVA tenderness Skin: General skin exam: no rashes or lesions noted Neuro: General: oriented to person and patient oriented x3 Cranial nerves: Yes CN's II-XII intact bilaterally Motor exam (neuro): 5/5 motor strength present throughout Sensory Exam: No Sensory deficit (Neuro) Extrem: General: Yes normal to inspection Psych: Appearance: grossly normal Course Reevaluation(s) Reevaluation #1: patient most likely with feeling his PVCs, no evidence of cardiac disease. troponins remain flat, will dc home Time: 00:02 MDM - Chest Pain Lab Data Result diagrams: 11/20/21 23:11 08/22/22 23:11 Labs: Lab Results 11/20/21 11/20/21 11/20/21 Range/Units 23:11 23:11 23:11 WBC 9.5 (4.8-10.8) X10*3/uL RBC 4.45 L (4.60-5.80) X10*6/uL Hgb 13.7 L (14.0-18.0) g/dl Hct 39.4 L (42.0-52.0) % MCV 88.5 (80.0-98.0) fL MCH 30.8 (27.0-33.0) pg MCHC 34.8 (31.0-36.0) g/dl RDW 12.0 (11.0-16.0) % Plt Count 257 (160-400) X10*3/uL MPV 9.7 (9.4-12.4) fL Immature Gran % (Auto) 0.2 (0.0-0.4) % Neut % (Auto) 56.5 (45-73) % Lymph % (Auto) 31.4 (20-40) % [facility] % (Auto) 8.5 (2-11) % Eos % (Auto) 3.0 (0-4) % Baso % (Auto) 0.4 (0-2) % Lymph # (Auto) 3.0 (1.2-4.9) X10*3/uL [facility] # (Auto) 0.8 (0.1-1.2) X10*3/uL Eos # (Auto) 0.3 (0.0-0.4) X10*3/uL Baso # (Auto) 0.0 (0.0-0.2) X10*3/uL Abs Immat Gran (auto) 0.02 (0.00-0.03) X10*3/uL Absolute Neuts (auto) 5.4 (2.0-8.3) x10*3/uL Absolute Nucleated RBC 0.000 (0.0-0.012) X10*3/uL Nucleated RBC % (auto) 0.0 (0.0-0.2) /100WBC Sodium 135 (135-145) mmol/L Potassium 4.5 (3.3-5.1) mmol/L Chloride 104 (96-108) mmol/L Carbon Dioxide 22 (22-29) mmol/L Anion Gap 14 (12-20) BUN 13 (9-16) mg/dL Creatinine 0.82 (0.5-1.4) mg/dL Estim Creat Clear Calc 138.0 Estimated GFR > 60 Random Glucose 268 H (60-115) mg/dL Calcium 9.7 (8.4-10.2) mg/dL Troponin I High Sens < 3.5 (<3.5-35.0) ng/L ECG Data ECG #1: Attestation: I personally reviewed and interpreted this ECG as follows: Interpretation: sinus rhythm with PVCs every 4th beat, no ischemia Discharge Plan Discharge Clinical Impression: Heart palpitations, Blood glucose elevated Patient Disposition: Home, Self-Care Instructions: Heart Palpitations (ED), Diabetic Hyperglycemia (ED) Prescriptions: No Action meloxicam 15 mg tablet 15 mg PO DAILY amlodipine 5 mg tablet 5 mg PO DAILY atorvastatin 20 mg tablet 20 mg PO DAILY Zyrtec 10 mg capsule 10 mg PO DAILY metformin 750 mg tablet extended release 24 hr 750 mg PO BID Januvia 100 mg tablet 100 mg PO DAILY Referrals: Physician,Unknown J [Primary Care Provider] - 1 week
[2021-11-20 23:50] LABS: Anion Gap 14 (12-20); Blood Urea Nitrogen 13 mg/dL (9-16); Calcium 9.7 mg/dL (8.4-10.2); Carbon Dioxide 22 mmol/L (22-29); Chloride 104 mmol/L (96-108); Estimated Glomerular Filt Rate > 60; Glucose Random 268 mg/dL (60-115); Potassium 4.5 mmol/L (3.3-5.1); Sodium 135 mmol/L (135-145)
[2021-11-20 23:51] VITALS: BP 148/65; PULSE 60; RESP 16; O2SAT 97
[2021-11-20 23:58] LABS: Troponin-I High Sensitivity < 3.5 ng/L (<3.5-35.0)
== END 2021-11-21 00:12 | disposition home or self-care (01) ==
PROVIDERS: Emergency Provider Emergency Medicine
DX: R00.2 Palpitations (principal); E11.65 Type 2 diabetes mellitus with hyperglycemia; I10 Essential (primary) hypertension; F12.90 Cannabis use, unspecified, uncomplicated; Z79.02 Long term (current) use of antithrombotics/antiplatelets; Z79.84 Long term (current) use of oral hypoglycemic drugs; Z79.899 Other long term (current) drug therapy
CPT/HCPCS: 36415; 80048; 84484; 85025; 93005; 99283

== ENCOUNTER 2022-02-09 07:35 | Outpatient (REF) | payer MEDICAID, SELFPAY ==
--- NOTE | ~2022-02-09 | CT_ITS ---
EXAMINATION: CT ABDOMEN AND PELVIS WITHOUT CONTRAST CLINICAL INFORMATION: Renal calculus. COMPARISON: 11/21/2013. TECHNIQUE: Multidetector volumetric imaging was performed from the superior aspect of the liver through the pubic symphysis. Sagittal and coronal reformatted images were obtained on the technologist's workstation. This CT examination was performed using dose optimization techniques as appropriate, variously including the following: *Automated exposure control *Adjustment of mA and/or kV according to patient size (this includes techniques or standardized protocols for targeted exams where dose is matched to indication/reason for exam; i.e. extremities or head) *Use of iterative reconstruction technique DLP: 653 mGy-cm. FINDINGS: LUNG BASES: The visualized lung bases are unremarkable. No pleural or pericardial effusion. Coronary artery calcification present. LIVER, GALLBLADDER, AND BILIARY TREE: Liver is prominent in size with right lobe measuring 21 cm in vertical span. The liver is normal in shape and attenuation. No focal hepatic lesion or biliary ductal dilatation is present. The gallbladder is unremarkable with no evidence of radiopaque gallstones, gallbladder wall thickening, or obvious pericholecystic inflammatory changes. PANCREAS: Unremarkable. No peripancreatic inflammatory change. SPLEEN: Unremarkable. ADRENAL GLANDS: Unremarkable. KIDNEYS AND URETERS: The kidneys are normal in size, shape, and attenuation. No hydronephrosis, hydroureter, or calculi seen. There is minimal perinephric stranding. BLADDER: Decompressed. GASTROINTESTINAL TRACT: No dilated loops of large or small bowel are evident. No free air or free fluid is seen. No pericolonic inflammatory changes seen. The appendix is visualized and appears unremarkable. ABDOMINAL WALL: No significant hernia is appreciated. LYMPH NODES: No lymphadenopathy appreciated. VASCULAR: Mild calcified plaque present. No abdominal aortic aneurysm. PELVIC VISCERA: Unremarkable. OSSEOUS STRUCTURES: Stable sclerotic lesion seen within the right iliac bone. There is partial lumbarization of S1 on the right. There is bony bridging seen within the lower thoracic spine. No destructive bony lesions identified. CT/CT abdomen pelvis wo IV con IMPRESSION: No evidence of obstructive uropathy. No evidence of ileus or obstruction. Liver prominence at 21 cm in vertical span. Fleischner guidelines were followed.
== END 2022-02-09 07:36 | disposition home or self-care (01) ==
LOC: HO.CT 07:35
PROVIDERS: PCP Nurse Practitioner Community Health; Visit Provider Nurse Practitioner Community Health
DX: N20.0 Calculus of kidney (principal)
CPT/HCPCS: 74176

== ENCOUNTER → 2022-05-15 13:22 | Outpatient (BNVA) | payer MEDICAID, SELFPAY | PROVIDERS: PCP Nurse Practitioner Community Health; Referring Provider Nurse Practitioner Community Health; Visit Provider Nurse Practitioner Family | DX: R00.2 Palpitations (principal); R55 Syncope and collapse; I10 Essential (primary) hypertension; G47.33 Obstructive sleep apnea (adult) (pediatric); Z79.899 Other long term (current) drug therapy | CPT/HCPCS: 99212 ==

== ENCOUNTER → 2022-05-24 11:19 | Outpatient (REF) | payer MEDICAID, SELFPAY ==
--- NOTE | 2022-05-24 11:21 | HM_ITS ---
Conclusion: 1. Patient was monitored for total period of 2 days 2. Baseline was normal sinus rhythm with average heart of 86 beats per minute 3. No significant pauses or bradycardia noted 4. Total of 31,275 PVCs which are mostly isolated accounting for 13.2% of total beats account for very frequent PVCs 5. Patient reported to events correlated with PVCs MTDD
== END ==
LOC: HO.CARD 11:19
PROVIDERS: Visit Provider Nurse Practitioner Family
DX: R00.2 Palpitations (principal)
CPT/HCPCS: 93242

== ENCOUNTER → 2022-06-15 09:46 | Outpatient (REF) | payer MEDICAID, SELFPAY ==
--- NOTE | 2022-06-15 09:48 | CA_ITS ---
Transthoracic Echocardiogram Patient (Last, First, Middle): Bib Arriola, Gender: Male Date of : 1970 Age: 51 Procedure Date: 06/15/2022 Procedure Type: Transthoracic Echocardiogram Location: OP Height: 180.34 cm Weight: 110.68 kg BSA: 2.29 m2 Heart Rate: bpm BP: 127 / 80 mmHg Metal Base Blocker: TO Referring MD: Di Curran AMBULATORY SERVICES REPRESENTATIVE-C Symptoms: I49.3 - Ventricular premature depolarization Study Quality: Fair/Contrast Conclusions: - Normal left ventricular size and systolic function. There is mildly increased left ventricular wall thickness. The visually estimated ejection fraction is between 55-60%. - Mildly increased right ventricular cavity size. There is normal right ventricular systolic function. Findings Procedure Information Contrast agent, definity, is being given per protocol without apparent complications. Left Ventricle Normal left ventricular size and systolic function. There is mildly increased left ventricular wall thickness. The visually estimated ejection fraction is between 55-60%. There is no evidence of regional wall motion abnormalities. Diastolic function is normal for age. Right Ventricle Mildly increased right ventricular cavity size. There is normal right ventricular systolic function. Atria The left atrium is normal in size. The right atrium is mildly dilated. Aortic Valve Normal aortic valve structure and function. There is no aortic valve stenosis. There is no aortic valve regurgitation. Mitral Valve Normal mitral valve structure and function. There is trace mitral valve regurgitation. There is no mitral valve stenosis. Pulmonic Valve The pulmonic valve is likely normal. Tricuspid Valve Normal tricuspid valve structure and function. There is no tricuspid valve regurgitation. Normal right atrial pressure. There is no evidence of pulmonary hypertension. Great Vessels There is mild dilatation of the ascending aorta measuring 3.60 cm. The visualized portions of the pulmonary artery and branches are normal. Venous The inferior vena cava is normal in size and collapses greater than 50% with inspiration. Pericardium/Pleural There is no evidence of pericardial effusion. Prior Study Comparison No significant change compared to prior study dated: 01/10/2021. Measurements 2D Linear Measurements IVSd: 1.34 0.6-0.9/0.6-1.0 cm LVIDd: 4.72 3.9-5.3/4.2-5.9 cm LVIDd Index: 2.06 2.4-3.2/2.2-3.1 cm/m2 LVIDs: 3.21 2.0-3.6 cm LVPWd: 1.06 0.7-1.1 cm LA Diam: 4.10 2.7-3.8/3.0-4.0 cm LAIDs Index: 1.79 1.5-2.3 cm/m2 LV Mass: 266.02 67-162/88-224 g LV Mass Index: 116.17 43-95/49-115 g/m2 LVOT Diam: 2.10 3.0+(-)1.3 cm 2D Systolic Function EF 4C: 52.00 >55% EF 2C: 53.20 >55% EF BiP: 52.50 >55% Mitral Valve MV Pk E: 0.60 MV PK A: 0.59 MV Decel Time: 204.00 E/A: 1.00 E'Lateral: 10.60 E'Medial: 7.18 E/E' Med: 8.40 E/E' Lat: 5.70 PHT: 60.00 MVA PHT: 3.67 Decel Bergen: 2.93 Aortic Valve AoV Pk Ervin: 1.36 AoV Mn Ervin: 0.95 AoV VTI: 0.24 AoV Pk Grad: 7.00 Aov Mn Grad: 4.00 KRISTINE Cont.VTI: 3.03 LVOT LVOT Pk Ervin: 1.03 LVOT Mn Ervin: 0.76 LVOT VTI: 0.21 LVOT Pk Grad: 4.00 LVOT Mn Grad: 3.00 LVOT Diam: 2.10 LVOT Area: 3.46 Diastolic Function MV Pk E: 0.60 MV Pk A: 0.59 E/A: 1.00 E'Medial: 7.18 E/E' Med: 8.40 E' Laterial: 10.60 E/E' Lat: 5.70 Right Ventricle TAPSE (mm): 27.70 TVS' Ervin: 15.20 Tricuspid Valve TR Pk Ervin: 2.39 TR Pk Grad: 23.00 RA Press: 3.00 RVSP: 26.00 Great Vessels Aorta Sinus of Valsalva: 3.33 2.0-3.[address] Ridge: 2.70 1.7-3.4 cm Ao Asc: 3.60 2.1-3.4 cm Updated in Other Vendor System with Status of Final Bulmaro Rangel MD electronically signed on 06/18/2022 11:20:10 AM with status of Final
== END ==
LOC: HO.CARD 09:46
PROVIDERS: Visit Provider Nurse Practitioner Family
DX: I49.3 Ventricular premature depolarization (principal); R00.2 Palpitations; G47.33 Obstructive sleep apnea (adult) (pediatric)
CPT/HCPCS: 93306; Q9957

== ENCOUNTER → 2022-06-18 09:50 | Outpatient (REF) | payer MEDICAID, SELFPAY ==
--- NOTE | ~2022-06-18 | NM_ITS ---
Exercise Myocardial perfusion study Indication: Reason PVCs to assess for myocardial ischemia Technique: The patient was brought in for an exercise perfusion study on 06/18/2022. Patient performed exercise as per Juan protocol and was injected 40 mCi of sestamibi was given intravenously one target HR was achieved. Images were obtained using the SPECT gamma camera interlaced with the gating device. Images were obtained in supine position. Resting perfusion study was performed on 06/20/2022. Patient was administered 40 mCi of sestamibi intravenously at rest. Images were then obtained in supine position. Images obtained with and without CT attenuation. Total DLP 123 mGy-cm Images were processed with the software and compared side to side in short axis, horizontal long axis and vertical long axis views. Findings: The stress perfusion study showed both attenuated as well as non attenuated corrected images show normal uptake of radiotracer in all segments of LV myocardium. The gated study shows normal LV systolic function with calculated LVEF of 64%. LV cavity is normal in size. The gated study shows normal systolic wall thickening and contraction of all segments. There is no transient ischemic dilation. Resting study shows normal uptake of radiotracer in all segments of LV myocardium. Gating at rest reveals normal systolic wall motion with visually estimated ejection fraction at greater than 60%. The findings are consistent with normal myocardial perfusion. NM/NM cardiolite stress test Impression: 1. Normal myocardial perfusion 2. Gated LVEF is 64% 3. Transient ischemic dilatation not present Stress EKG is negative for ischemia
--- NOTE | 2022-06-18 09:53 | CA_ITS ---
Acquisition Time: 2022-06-18 10:15:17 Total Exercise Time: 00:07:30 Test Indications: PALPITATIONS Medications: Protocol: GENNA Max HR: 153 BPM 90% of Pred: 170 BPM Max BP: 210/058 mmHG Max Work Load: 9.3 METS Exercise stress test with exercise 7 min 30 sec of Genna protocol, achieving 90% MPHR, without anginal symptoms, with isolated PVCs mostly at baseline and in recovery, less noted during exercise, with hypertensive response to exercise with max BP 210/58, without EKG changes meeting criteria for ischemia. In recovery BP returned to 140/68. Nuclear images pending. Test reviewed with Dr Nicolas Referred By: Di Curran Overread By: DI CURRAN
== END ==
LOC: HO.CARD 09:50
PROVIDERS: Visit Provider Nurse Practitioner Family
DX: R00.2 Palpitations (principal); I10 Essential (primary) hypertension; I49.3 Ventricular premature depolarization
CPT/HCPCS: 78452; 93017; A9500

== ENCOUNTER 2022-11-19 09:58 | Outpatient (AMB) | payer MEDICAID, SELFPAY ==
--- NOTE | 2022-11-19 10:04 | MHC.OFFVIS ---
Intake Vital Signs 11/19/22 10:05 Height 5 ft 11 in Weight 244 lb 11.41 oz BMI 34.1 BP 140/86 H Blood Pressure Location Lt brachial Position Sitting Pulse 72 Pulse Source Monitor Intake Visit Reasons: 6 mth f/up Intake Note: 6 month follow up with EKG. Vending Technician Required: No Accompanied by: Self / Same As Patient Allergies No Known Allergies [No Known Allergies*] Allergy (Verified 11/19/22 10:07) Medication List - Last Reconciled 11/19/22 by Bulmaro Rangel MD cetirizine (Zyrtec) 10 mg PO DAILY HPI HPI Comments History of Present Illness Details 52-year-old gentleman here for follow-up. He was well seen in April 2019 when he presented at [facility] with syncope. Story was consistent with vasovagal syncope. He had a Holter monitor which showed 13,000 monomorphic PVCs. Nuclear stress testing which was unremarkable. He was referred for tilt-table testing but it appears due to COVID-19 pandemic he decided not to undergo tilt-table test. His returning for follow-up now because he had chest pain in the last year. He called our office with left-sided chest pain ongoing for 3 days. He said this lasted for approximately 3-4 days. There was also some reproducible discomfort in the left upper chest. He has not had any syncope but has noticed that if he looks down consistently then he gets very dizzy. He has seen Neurology and no obvious cause is found for this. Echocardiography has shown mild dilation of the right ventricle in some views. Overall function is normal. No LV dysfunction or valvular disease. He was referred to sleep medicine and was diagnosed with sleep apnea. He has started the CPAP. His blood pressure control is okay right now. He is on amlodipine 5 mg is saying that and other medication has been started which he does not know the name of. He will call us to update the new medication mean. He has not had any further syncopal episodes. He is denying chest pain or shortness of breath. 11/19/22: He returns for follow-up. He has stopped taking all his medications. Blood pressure in the office is elevated. He is saying that he was on multiple medications and was not feeling well and he has decided to stop taking all his medications. He is only taking the allergy medication at this point. He is exercising and playing basketball with his son and feels good. We had a detailed discussion about preventive aspects of being on antihypertensive therapy specially being a diabetic. Also a moderate intensity statin is indicated in him to prevent future cardiovascular events. [facility] Medical History Diabetes Palpitations Syncope Surgical History H/O neck surgery Hx of hernia repair Family History Father Myocardial infarct Diabetes CVD (cardiovascular disease) Mother Diabetes Social History Alcohol intake: never Patient Tobacco Use Status: Never used Tobacco Substance Use Type: Marijuana Review of Systems Const Denies weakness ENT Denies dizziness Card Denies chest pain, Denies chest pain with activity, Denies syncope, Denies rapid heart rate, Denies pedal edema, Denies edema, Denies leg edema, Denies lightheadedness, Denies palpitations, Denies dyspnea, Denies dyspnea on exertion and Denies orthopnea Resp Denies cough, Denies dyspnea and Denies dyspnea on exertion GI Denies hematochezia and Denies change in stool character Musc Denies abnormal gait, Denies muscle cramps, Denies muscle weakness, Denies numbness, Denies radiating pain into limb and Denies tingling Neuro Denies abnormal gait, Denies dizziness, Denies syncope, Denies numbness, Denies tingling and Denies weakness Endo Denies palpitations Physical Exam Vital Signs: Last Vital Signs Pulse 72 11/19/22 10:05 BP 140/86 H 11/19/22 10:05 BMI result Body Mass Index 34.1 GENERAL APPEARANCE: in no acute distress, pleasant. NECK: no carotid bruit, no jugular venous distention. SKIN: no suspicious lesions, warm and dry. HEART: no murmurs, regular rate and rhythm. LUNGS: clear to auscultation bilaterally. ABDOMEN: soft, nontender. EXTREMITIES: no edema. PERIPHERAL PULSES: equal. NEUROLOGIC: No gross deficits, AAO X 3 Office Procedures EKG Details: Sinus rhythm 72 beats per minute, occasional premature ventricular complexes, QTC 442 milliseconds. [id number], Complete Assessment & Plan Assessment & Plan (1) Frequent PVCs: Code(s): I49.3 - Ventricular premature depolarization (2) Essential hypertension: Code(s): I10 - Essential (primary) hypertension Plan [age] year gentleman who is here for follow-up. He was previously seen for syncope. He also has premature ventricle complexes and hypertension. EKG showing occasional PVCs. On follow-up he has stopped taking all his medication including his diabetes medication as well as antihypertensives. Blood pressure is elevated. At home he has had readings in 140s systolic too. He is saying that after stopping medications he has been feeling great and is actively exercising and playing basketball with his son. We had a detailed discussion about the role of medications in him to prevent future events. Specially being a diabetic he needs to have better blood pressure control and probably should be on an JAKOB-inhibitor and statin therapy. Currently he feels he does not want to take any medications and we will rediscuss this in few months. I explained to him that medications sometimes are not for feeling better but are given to prevent future cardiovascular issues which he is at risk off. Thank you for allowing me to participate in the care of your patient. Please feel free to contact me if you have any questions. Coding Level of Care Code Est Pt Level 4 (04161) Diagnoses Frequent PVCs I49.3 Essential hypertension I10 CPT Codes EKG - CPT: 07275-[id number], Complete ([id number])
[2022-11-19 10:05] VITALS: BP 140/86; PULSE 72; BMI 34.1
== END 2022-11-19 10:39 | disposition home or self-care (01) ==
PROVIDERS: PCP Nurse Practitioner Community Health; Referring Provider Nurse Practitioner Community Health; Visit Provider Internal Medicine Cardiovascular Disease
DX: I49.3 Ventricular premature depolarization (principal); I10 Essential (primary) hypertension
CPT/HCPCS: 93010; 99214

== ENCOUNTER → 2022-11-19 09:58 | Outpatient (BNVA) | payer MEDICAID, SELFPAY | PROVIDERS: PCP Nurse Practitioner Community Health; Referring Provider Nurse Practitioner Community Health; Visit Provider Internal Medicine Cardiovascular Disease | DX: I49.3 Ventricular premature depolarization (principal); R00.2 Palpitations; R55 Syncope and collapse; Z91.148 Patient's other noncompliance with medication regimen for other reason | CPT/HCPCS: 93005; 99212 ==

== ENCOUNTER 2023-04-17 13:05 | Outpatient (AMB) | payer MEDICAID, SELFPAY ==
[2023-04-17 13:19] VITALS: BP 150/70; PULSE 81; BMI 34.8
--- NOTE | 2023-04-17 13:19 | A.OFFVIS_ITS ---
Intake Vital Signs 04/17/23 13:19 Height 5 ft 11 in Weight 249 lb 9.012 oz BMI 34.8 BP 150/70 H Blood Pressure Location Lt brachial Position Sitting Pulse 81 Pulse Source Pulse Oximeter Intake Visit Reasons: 4 mth fu Intake Note: 4 mnth f/up pt its feeling fine. Registered Nurse Obstetrics Required: No Accompanied by: Self / Same As Patient Allergies No Known Allergies [No Known Allergies*] Allergy (Verified 11/19/22 10:07) Medication List - Last Reconciled 04/17/23 by Bulmaro Rangel MD cetirizine (Zyrtec) 10 mg PO DAILY HPI HPI Comments History of Present Illness0 Details 52-year-old gentleman here for follow-up . He was well seen in April 2019 when he presented at [facility] with syncope. Story was cons istent with vasovagal syncope. He had a Holter monitor which showed 13,000 monomorphic PVCs. Nuclear stress testing which was unremarkable. He was referred for tilt-table testing but it appears due to COVID-19 pandemic he decided not to undergo tilt-table test. His returning for follow-up now because he had chest pain in the last year. He called our office with left-sided chest pain ongoing for 3 days. He said this lasted for approximately 3-4 days. There was also some reproducible discomfort in the left upper chest. He has not had any syncope but has noticed that if he looks down consistently then he gets very dizzy. He has seen Neurology and no obvious cause is found for this. Echocardiography has shown mild dilation of the right ventricle in some views. Overall function is normal. No LV dysfunction or valvular disease. He was referred to sleep medicine and was diagnosed with sleep apnea. He has started the CPAP. His blood pressure control is okay right now. He is on amlodipine 5 mg is saying that and other medication has been started which he does not know the name of. He will call us to update the new medication mean. He has not had any further syncopal episodes. He is denying chest pain or shortness of breath. 11/19/22: He returns for follow-up. He has stopped taking all his medications. Blood pressure in the office is elevated. He is saying that he was on multiple medications and was not feeling well and he has decided to stop taking all his medications. He is only taking the allergy medication at this point. He is exercising and playing basketball with his son and feels good. We had a detailed discussion about preventive aspects of being on antihypertensive therapy specially being a diabetic. Also a moderate intensity statin is indicated in him to prevent future cardiovascular events. 04/17/2023: He returns for follow-up. On last visit he stopped taking all his medications and was trying to diet and exercise and weight loss. We had a discussion at that time about antihypertensive therapy and starting statins but he wished to diet and exercise. He returns again and his blood pressure is elevated. Sitting at home his blood pressures are running in high 130s over 80s. He said he is starting a diabetes medication but does not remember the name of the medication. We again had a detailed discussion about blood pressure control and diabetes control. [facility] Medical History Diabetes Palpitations Syncope Surgical History Hx of hernia repair H/O neck surgery Family History Father Myocardial infarct Diabetes CVD (cardiovascular disease) Mother Diabetes Social History Alcohol intake: never Patient Tobacco Use Status: Never used Tobacco Substance Use Type: Marijuana Review of Systems Const Reports chills, Reports fatigue, Reports fever(s), Reports frequent falls, Reports weakness, Reports weight gain and Reports weight loss ENT Reports dizziness Card Reports chest pain, Reports leg edema, Reports lightheadedness, Reports palpitations, Reports dyspnea and Reports dyspnea on exertion Resp Reports cough, Reports dyspnea and Reports dyspnea on exertion GI Reports hematochezia Musc Reports abnormal gait, Reports muscle weakness, Reports numbness, Reports ra diating pain into limb and Reports tingling Neuro Reports abnormal gait, Reports dizziness, Reports frequent falls, Reports numbness, Reports tingling and Reports weakness Endo Reports fatigue and Reports palpitations Physical Exam Vital Signs: Last Vital Signs Pulse 81 04/17/23 13:19 BP 150/70 H 04/17/23 13:19 BMI result Body Mass Index 34.8 GENERAL APPEARANCE: in no acute distress, pleasant. NECK: no carotid bruit, no jugular venous distention. SKIN: no suspicious lesions, warm and dry. HEART: no murmurs, regular rate and rhythm. LUNGS: clear to auscultation bilaterally. ABDOMEN: soft, nontender. EXTREMITIES: no edema. PERIPHERAL PULSES: equal. NEUROLOGIC: No gross deficits, AAO X 3 Assessment & Plan Assessment & Plan (1) Frequent PVCs: Code(s): I49.3 - Ventricular premature depolarization (2) Essential hypertension: Code(s): I10 - Essential (primary) hypertension Plan Pleasant 52-year-old gentleman who is here for follow-up. He was seen previously for syncope. He had premature ventricular complexes and hypertension. Echocardiography did not show any LV dysfunction. He has stopped taking all his medications. We again had a discussion about restarting antihypertensive therapy. He is saying that he is looking to see a oim architect and would try that 1st. He is going to keep an eye on his blood pressure. I have explained to him that if his blood pressure is in high 1 30s to 140s persistently and does not improve with his diet and exercise strategy then we may have to consider antihypertensive therapy. In that case I will start him on lisinopril as it would be protective for his kidneys given his history of diabetes too. He can see us in 6 months. Coding Level of Care Code Est Pt Level 4 (59825) Diagnoses Frequent PVCs I49.3 Essential hypertension I10
== END 2023-04-17 13:47 | disposition home or self-care (01) ==
PROVIDERS: PCP Nurse Practitioner Community Health; Visit Provider Internal Medicine Cardiovascular Disease
DX: I49.3 Ventricular premature depolarization (principal); I10 Essential (primary) hypertension
CPT/HCPCS: 99214

== ENCOUNTER → 2023-04-17 13:05 | Outpatient (BNVA) | payer MEDICAID, SELFPAY | PROVIDERS: PCP Nurse Practitioner Community Health; Visit Provider Internal Medicine Cardiovascular Disease | DX: I49.3 Ventricular premature depolarization (principal); I10 Essential (primary) hypertension | CPT/HCPCS: 99212 ==

== ENCOUNTER 2023-10-06 13:06 | Emergency (ER) | payer MEDICAID, SELFPAY ==
[2023-10-06] VITALS (8 sets, daily range): BP systolic 144–185; BP diastolic 68–87; PULSE 68–90; RESP 10–28; TEMP 36.8; O2SAT 100; BMI 34.1; BMI 33.8
--- NOTE | ~2023-10-06 | XR_ITS ---
EXAMINATION: XR CHEST CLINICAL INFORMATION: Reason for Exam chest pain COMPARISON: Chest radiograph 11/20/2021 TECHNIQUE: One view of the chest FINDINGS: Lines and tubes: EKG leads overlie the patient. Partially imaged cervical fusion hardware. Clear lungs. No pleural effusion. No pneumothorax. Unchanged cardiomediastinal silhouette. XR/XR chest 1V IMPRESSION: * Clear lungs.
--- NOTE | 2023-10-06 13:09 | ECG_ITS ---
Test Reason : CP Blood Pressure : / mmHG Vent. Rate : 085 BPM Atrial Rate : 085 BPM P-R Int : 118 ms QRS Dur : 092 ms QT Int : 368 ms P-R-T Axes : 047 028 050 degrees QTc Int : 437 ms Sinus rhythm with frequent , and consecutive Premature ventricular complexes with junctional escape complexes Abnormal ECG When compared with ECG of 06-OCT-2023 13:06, Sinus rhythm is now with junctional escape complexes ST elevations in last ECG are due to artifact. Referred By: Generic ED Physician Electronically Signed By:Bulmaro Rangel
--- NOTE | 2023-10-06 13:23 | ECG_ITS ---
Test Reason : CP Blood Pressure : / mmHG Vent. Rate : 080 BPM Atrial Rate : 080 BPM P-R Int : 114 ms QRS Dur : 098 ms QT Int : 384 ms P-R-T Axes : 000 030 072 degrees QTc Int : 442 ms Sinus rhythm with Premature supraventricular complexes and with frequent Premature ventricular complexes ST elevation consider inferolateral injury or acute infarct ACUTE [place] / STEMI Abnormal ECG When compared with ECG of 06-OCT-2023 13:15, Premature supraventricular complexes are now Present Sinus rhythm is no longer with junctional escape complexes ST elevation now present in Inferior leads ST now depressed in Anterior leads T wave inversion now evident in Anterior leads Referred By: Toi Wong Electronically Signed By:Bulmaro Rangel
[2023-10-06] MEDS: ondansetron HCL 4 MG/2 ML VIAL IVPUSH (13:25)
[2023-10-06] MEDS: 0.9 % Sodium Chloride 1,000 ML 999 ML IV (13:25)
--- NOTE | 2023-10-06 13:26 | ED_ITS ---
HPI - Chest Pain General Chief Complaint: Chest Pain Stated Complaint: chest pain Time Seen by Provider: 10/06/23 13:23 Source: patient Mode of arrival: ambulatory Limitations: no limitations History of Present Illness HPI narrative: This is a 53 years old male presented to the emergency department with a chief complaint of generalized weakness throat pain diaphoresis. He has history of diabetes, hypertension, history of PVCs. He arrived ambulatory to the emergency department Onset (ago): hour(s) (1) Prior episodes: No Onset: during rest Pain radiation: none Severity: moderate Quality: aching Relieving factors: nothing Exacerbating factors: nothing Risk Factors Coronary artery disease risk factors: diabetes and hypertension Related Data Home Medications ?Medication ?Instructions ?Recorded ?Confirmed cetirizine 10 mg capsule (Zyrtec) 10 mg PO DAILY 11/30/20 04/17/23 Allergies Allergy/AdvReac Type Severity Reaction Status Date / Time No Known Allergies Allergy Verified 10/06/23 13:21 [No Known Allergies*] Review of Systems 2 Constitutional: Constitutional: Reports no additional constitutional complaints Eyes: Eyes: Reports no additional eye complaints Cardiovascular: Cardiovascular: Reports no additional cardiovascular complaints [facility] Past Medical History Attestation statement: The following information was validated with the patient. [facility] Narrative: Hypertension, diabetes, PVCs Medical History Diabetes Palpitations Syncope Surgical History Hx of hernia repair H/O neck surgery Family History Family History Father Myocardial infarct Diabetes CVD (cardiovascular disease) Mother Diabetes Social History Social History Alcohol intake: never Patient Tobacco Use Status: Never used Tobacco Substance Use Type: Marijuana Advance Directives: No Advance Directives Information Provided: No Do you have a plan to hurt others: No Plan Physical Exam 2 Vital Signs: Vital Signs: Last Vital Signs Pulse 71 10/06/23 15:52 Resp 10 L 10/06/23 15:52 BP 144/78 H 10/06/23 15:52 Pulse Ox 100 10/06/23 15:52 O2 Del Method Room Air 10/06/23 15:52 BMI result Body Mass Index 33.8 Patient is diaphoretic in [id number] distress Const: General: cooperative Nutritional Appearance: well nourished O rientation/consciousness: patient oriented x3 Limitations: no limitations HEENT: Head: Yes normal to inspection General nose exam: Normal external nose present Face and sinus: Yes normal facial exam Mouth: Normal oral and palatal mucosa present Neck: Neck: Yes normal visual inspection and Yes full ROM Thyroid: Thyroid normal Resp: Effort & Inspection: normal respiratory effort Cardio: Jugular venous distension: no JVD Rate: regular rate Rhythm: r egular rhythm GI: Inspection: Yes normal to inspection Palpation (GI): Soft to palpation, not firm and nontender Skin: General skin exam: no rashes or lesions noted and elasticity normal L esions: no lesions Rashes: no rashes Neuro: General: patient oriented x3 Course Reevaluation(s) Reevaluation #1: I discussed the case with the cardiac cath lab manager [facility] GUN STRIPER reviewed the EKG with them I spoke with Dr. Jacobsen,will treat for now as ACS,no cath for now Time: 13:30 Reevaluation #2: I discussed the case with Dr. Cantrell he recommend transfer to [facility], IV heparin was order he got aspirin, Time: 14:40 Reevaluation #3: We repeated another EKG because patient was having more chest pain was sent to Cardiology [facility] again this time the patient was accepted to the cardiac cath lab manager he will go directly to the cardiac cath lab manager Time: 16:03 Medications Administered Generic Name Dose Route Start Last Admin Trade Name Freq PRN Reason Stop Dose Admin Heparin Sodium/Sodium Chloride 25,000 unit in 250 mls @ 0 mls/hr 10/06/23 14:45 10/06/23 15:39 Heparin Sodium,Porcine/1/2ns IVCONT 8.84 units/kg/hr .Q0M REGULO 10 mls/hr Administration Protocol Per Protocol Nitroglycerin 0.4 mg 10/06/23 13:46 10/06/23 15:33 Nitroglycerin 0.4 Mg Tab.Subl SUBLINGUAL 0.4 mg Q5MX3 PRN Administration Chest Pain Discontinued Medications Generic Name Dose Route Start Last Admin Trade Name Freq PRN Reason Stop Dose Admin Aspirin 325 mg 10/06/23 13:46 10/06/23 13:49 Aspirin 325 Mg Tablet PO 10/06/23 13:47 325 mg ONCE ONE Administration Fentanyl 50 mcg 10/06/23 15:46 10/06/23 15:49 Fentanyl Citrate/Pf 100 Mcg/2 Ml Vial IVPUSH 10/06/23 15:47 50 mcg ONCE ONE Administration Protocol Heparin Sodium (Porcine) 4,000 unit 10/06/23 14:20 10/06/23 14:34 Heparin Sodium,Porcine 5,000 Unit/Ml Vial IVPUSH 10/06/23 14:21 4,000 unit ONCE ONE Administration Sodium Chloride 1,000 mls @ 999 mls/hr 10/06/23 13:45 10/06/23 14:22 Ns IV 10/06/23 14:45 Infused .Q1H1M REGULO Infusion Insulin Human Lispro 12 unit 10/06/23 13:50 10/06/23 13:54 Insulin Lispro 100 Unit/Ml 3 Ml Vial SUBCUT 10/06/23 13:51 12 unit ONCE ONE Administration Metoprolol Tartrate 5 mg 10/06/23 15:00 10/06/23 15:32 Metoprolol Tartrate 5 Mg/5 Ml Vial IVPUSH 10/06/23 15:01 5 mg ONCE ONE Administration Ondansetron HCl 4 mg 10/06/23 13:35 10/06/23 13:25 Ondansetron Hcl 4 Mg/2 Ml Vial IVPUSH 10/06/23 13:36 4 mg ONCE ONE Administration Medical Decision Making Medical Decision Making [facility] Narrative: Patient presented with diaphoresis weakness will do EKG labs Differential Diagnosis Differential Diagnoses: The differential diagnosis associated with the presentation includes Differential diagnosis acute coronary syndrome/pericarditis/CHF Admission/Observation Consideration of admission/observation: Escalation of care including admission/observation considered Consult Healthcare Provider musical performer at [facility] cardiac cath lab manager multiple call Lab Data MDM Lab Attestation statement: I reviewed the patient's lab results. 10/06/23 Unknown 10/06/23 Unknown Labs: Lab Results 10/06/23 10/06/23 10/06/23 Range/Units 13:33 13:53 14:42 WBC (4.8-10.8) X10*3/uL RBC (4.60-5.80) X10*6/uL Hgb (14.0-18.0) g/dl Hct (42.0-52.0) % MCV (80.0-98.0) fL MCH (27.0-33.0) pg MCHC (31.0-36.0) g/dl RDW (11.0-16.0) % Plt Count (160-400) X10*3/uL MPV (9.4-12.4) fL Immature Gran % (Auto) (0.0-0.4) % Neut % (Auto) (45-73) % Lymph % (Auto) (20-40) % [place] % (Auto) (2-11) % Eos % (Auto) (0-4) % Baso % (Auto) (0-2) % Lymph # (Auto) (1.2-4.9) X10*3/uL [place] # (Auto) (0.1-1.2) X10*3/uL Eos # (Auto) (0.0-0.4) X10*3/uL Baso # (Auto) (0.0-0.2) X10*3/uL Abs Immat Gran (auto) (0.00-0.03) X10*3/uL Absolute Neuts (auto) (2.0-8.3) x10*3/uL Absolute Nucleated RBC (0.0-0.012) X10*3/uL Nucleated RBC % (auto) (0.0-0.2) /100WBC PT (11.1-13.3) SEC INR (0.9-1.1) aPTT Heparin Protocol (53-77.9) SEC D-Dimer High Sensitivty < 150 NG/ML Sodium (135-145) mmol/L Potassium (3.3-5.1) mmol/L Chloride (96-108) mmol/L Carbon Dioxide (22-29) mmol/L Anion Gap (12-20) BUN (9-16) mg/dL Creatinine (0.5-1.4) mg/dL Estim Creat Clear Calc Estimated GFR POC Glucose 469 H* 467 H* (60-115) mg/dL Random Glucose (60-115) mg/dL Calcium (8.4-10.2) mg/dL Total Bilirubin (0.0-1.0) mg/dL AST (5-37) U/L ALT (0-40) U/L Alkaline Phosphatase (39-117) U/L Troponin I High Sens (<3.5-35.0) ng/L B-Natriuretic Peptide (<100) pg/mL Total Protein (6.5-8.0) g/dL Albumin (3.5-5.0) g/dL 10/06/23 Range/Units Unknown WBC 11.5 H (4.8-10.8) X10*3/uL RBC 4.77 (4.60-5.80) X10*6/uL Hgb 15.0 (14.0-18.0) g/dl Hct 42.2 (42.0-52.0) % MCV 88.5 (80.0-98.0) fL MCH 31.4 (27.0-33.0) pg MCHC 35.5 (31.0-36.0) g/dl RDW 12.0 (11.0-16.0) % Plt Count 336 D (160-400) X10*3/uL MPV 10.1 (9.4-12.4) fL Immature Gran % (Auto) 0.3 (0.0-0.4) % Neut % (Auto) 58.0 (45-73) % Lymph % (Auto) 29.9 (20-40) % [place] % (Auto) 9.2 (2-11) % Eos % (Auto) 2.3 (0-4) % Baso % (Auto) 0.3 (0-2) % Lymph # (Auto) 3.4 (1.2-4.9) X10*3/uL [place] # (Auto) 1.1 (0.1-1.2) X10*3/uL Eos # (Auto) 0.3 (0.0-0.4) X10*3/uL Baso # (Auto) 0.0 (0.0-0.2) X10*3/uL Abs Immat Gran (auto) 0.04 H (0.00-0.03) X10*3/uL Absolute Neuts (auto) 6.6 (2.0-8.3) x10*3/uL Absolute Nucleated RBC 0.000 (0.0-0.012) X10*3/uL Nucleated RBC % (auto) 0.0 (0.0-0.2) /100WBC PT 13.7 H (11.1-13.3) SEC INR 1.1 (0.9-1.1) aPTT Heparin Protocol 30.6 L (53-77.9) SEC D-Dimer High Sensitivty NG/ML Sodium 137 (135-145) mmol/L Potassium 4.3 (3.3-5.1) mmol/L Chloride 99 (96-108) mmol/L Carbon Dioxide 26 (22-29) mmol/L Anion Gap 16 (12-20) BUN 14 (9-16) mg/dL Creatinine 1.38 (0.5-1.4) mg/dL Estim Creat Clear Calc 81.5 Estimated GFR 54 POC Glucose (60-115) mg/dL Random Glucose 531 H* (60-115) mg/dL Calcium 10.2 (8.4-10.2) mg/dL Total Bilirubin 0.4 (0.0-1.0) mg/dL AST 10 (5-37) U/L ALT 14 (0-40) U/L Alkaline Phosphatase 91 (39-117) U/L Troponin I High Sens 3.9 (<3.5-35.0) ng/L B-Natriuretic Peptide < 10 (<100) pg/mL Total Protein 7.6 (6.5-8.0) g/dL Albumin 4.2 (3.5-5.0) g/dL Independent Interpretation I performed an independent interpretation of an: EKG Interpretation: Multiple EKG reviewed ischemic looking consistent with ACS Independent Historian Clinical information obtained from an independent historian. History obtained from or confirmed by: Spouse Critical Care Time Critical Care Time Critical Care Time: Yes Total Critical Care Time: 60 Attestation: IV heparin speaking with musical performer at [facility] Discharge Plan Discharge Clinical Impression: ACS (acute coronary syndrome) Patient Disposition: Xfer Acute Care Hospital Transfer Details: [facility] Prescriptions: No Action Zyrtec 10 mg capsule 10 mg PO DAILY Print Language: Bahraini
[2023-10-06 13:28] LABS: MANUAL DIFF FLAG NO
[2023-10-06 13:30] LABS: Basophils Percent Auto 0.3 % (0-2); Eosinophils Absolute Auto 0.3 X10*3/uL (0.0-0.4); Eosinophils Percent Auto 2.3 % (0-4); Hematocrit 42.2 % (42.0-52.0); Imm Gran Abs Auto 0.04 X10*3/uL (0.00-0.03); Imm Gran Pct Auto 0.3 % (0.0-0.4); Lymphocytes Absolute Auto 3.4 X10*3/uL (1.2-4.9); Lymphocytes Percent Auto 29.9 % (20-40); Mean Corpuscular HGB Conc 35.5 g/dl (31.0-36.0); Mean Corpuscular Hemoglobin 31.4 pg (27.0-33.0); Mean Corpuscular Volume 88.5 fL (80.0-98.0); Mean Platelet Volume 10.1 fL (9.4-12.4); Monocytes Absolute Auto 1.1 X10*3/uL (0.1-1.2); Monocytes Percent Auto 9.2 % (2-11); Neutrophils Absolute Auto 6.6 x10*3/uL (2.0-8.3); Platelet Count 336 X10*3/uL (160-400); Red Blood Count 4.77 X10*6/uL (4.60-5.80); White Blood Count 11.5 X10*3/uL (4.8-10.8)
--- NOTE | 2023-10-06 13:36 | ECG_ITS ---
Test Reason : CP Blood Pressure : / mmHG Vent. Rate : 079 BPM Atrial Rate : 079 BPM P-R Int : 126 ms QRS Dur : 112 ms QT Int : 380 ms P-R-T Axes : 075 030 042 degrees QTc Int : 435 ms Sinus rhythm with frequent Premature ventricular complexes Nonspecific ST and T wave abnormality Abnormal ECG When compared with ECG of 06-OCT-2023 13:23, Premature supraventricular complexes are no longer Present ST no longer elevated in Inferior leads ST no longer depressed in Anterior leads Referred By: Toi Wong Electronically Signed By:Bulmaro Rangel
[2023-10-06 13:38] LABS: INTERNATIONAL NORM RATIO 1.1 (0.9-1.1); Prothrombin Time 13.7 SEC (11.1-13.3)
--- NOTE | 2023-10-06 13:39 | PC.NURSE ---
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 pt verbalizes driving to ED independently. ekg performed in triage/showed to MD. pt immediately to main ED in hallway. upon assessment, pt seems to be in extreme discomfort/diaphoretic. actively vomiting. placed on sheet metal duct installer apprentice. 20gIV placed in the right AC - labs obtained/sent to lab. 1L NS/zofran administered per provider order. pt then moved to ED22. repeat ekg performed/given to MD. another 20gIV placed in the left AC - labs obtained/sent to lab. pt currently c/o increase in pain. remains diaphoretic. sob/wob noted. respirations even/labored. plan of care ongoing.
[2023-10-06 13:40] LABS: PTT Heparin Drip 30.6 SEC (53-77.9)
[2023-10-06] MEDS: Aspirin 325 MG TABLET PO (13:49)
[2023-10-06 13:50] LABS: Alanine Aminotransferase 14 U/L (0-40); Albumin Level 4.2 g/dL (3.5-5.0); Alkaline Phosphatase 91 U/L (39-117); Anion Gap 16 (12-20); Aspartate Amino Transferase 10 U/L (5-37); Bilirubin Total 0.4 mg/dL (0.0-1.0); Blood Urea Nitrogen 14 mg/dL (9-16); Calcium 10.2 mg/dL (8.4-10.2); Carbon Dioxide 26 mmol/L (22-29); Chloride 99 mmol/L (96-108); Creatinine Clr Calc Pharmacy 81.5; Estimated Glomerular Filt Rate 54; Glucose Random 531 mg/dL (60-115); Potassium 4.3 mmol/L (3.3-5.1); Sodium 137 mmol/L (135-145); Total Protein 7.6 g/dL (6.5-8.0)
--- NOTE | 2023-10-06 13:50 | PC.NURSE ---
ASA administered per provider order.
[2023-10-06 13:51] LABS: B Type Natriuretic Peptide < 10 pg/mL (<100); Troponin-I High Sensitivity 3.9 ng/L (<3.5-35.0)
[2023-10-06] MEDS: Insulin Lispro 100 UNIT/ML 3 ML VIAL 12 UNIT SUBCUT (13:54)
[2023-10-06 13:58] LABS: D Dimer High Sensitivity < 150 NG/ML
--- NOTE | 2023-10-06 14:16 | ECG_ITS ---
Test Reason : CP Blood Pressure : / mmHG Vent. Rate : 075 BPM Atrial Rate : 075 BPM P-R Int : 132 ms QRS Dur : 084 ms QT Int : 396 ms P-R-T Axes : 066 022 060 degrees QTc Int : 442 ms Sinus rhythm with sinus arrhythmia with Fusion complexes ST elevation consider inferolateral injury or acute infarct ACUTE [place] / STEMI Abnormal ECG When compared to the previous EKG of Inferolateral ST elevations present Referred By: Toi Wong Electronically Signed By:Bulmaro Rangel
[2023-10-06] MEDS: Nitroglycerin 0.4 MG TAB.SUBL SUBLINGUAL ×3 (14:17→15:33)
[2023-10-06] MEDS: Heparin Sodium,Porcine 5,000 UNIT/ML VIAL 4000 UNIT IVPUSH (14:34)
[2023-10-06 14:51] LABS: Glucose, Whole Blood 467 mg/dL (60-115)
[2023-10-06 14:51] LABS: Glucose, Whole Blood 469 mg/dL (60-115)
[2023-10-06] MEDS: Metoprolol Tartrate 5 MG/5 ML VIAL IVPUSH (15:32)
[2023-10-06] MEDS: Heparin Sodium,Porcine/1/2NS 25,000 UNIT/250 ML IV.SOLN 10 UNIT IVCONT (15:39)
--- NOTE | 2023-10-06 15:41 | ECG_ITS ---
Test Reason : CHEST PAIN Blood Pressure : / mmHG Vent. Rate : 066 BPM Atrial Rate : 066 BPM P-R Int : 136 ms QRS Dur : 088 ms QT Int : 408 ms P-R-T Axes : 066 024 064 degrees QTc Int : 427 ms Sinus rhythm with occasional Premature ventricular complexes and Fusion complexes ST elevations inferolateral leads ACUTE [place] / STEMI Abnormal ECG When compared with ECG of 06-OCT-2023 15:39, No significant changes seen Referred By: Toi Wong Electronically Signed By:Bulmaro Rangel
[2023-10-06] MEDS: fentaNYL citrate/PF 100 MCG/2 ML VIAL 50 MCG IVPUSH (15:49)
--- NOTE | 2023-10-06 15:54 | ECG_ITS ---
Test Reason : CP Blood Pressure : / mmHG Vent. Rate : 080 BPM Atrial Rate : 080 BPM P-R Int : 124 ms QRS Dur : 108 ms QT Int : 374 ms P-R-T Axes : -26 015 047 degrees QTc Int : 431 ms Sinus rhythm with occasional Premature ventricular complexes Baseline artifact with ?ST elevations lateral leads Abnormal ECG When compared to the previous EKG of ?ST elevations. Repeat the ECG to reassess the changes. Referred By: Toi Wong Electronically Signed By:Bulmaro Rangel
--- NOTE | 2023-10-06 16:02 | PC.NURSE ---
Attempted to call [facility] MS unit @[phone]. Was sent to RN voicemail, left message for call back.
[2023-10-06] MEDS: Ticagrelor 90 MG TABLET 180 MG PO (16:06)
== END 2023-10-06 16:08 | disposition short-term general hospital (02) ==
PROVIDERS: Emergency Provider Emergency Medicine
DX: I24.9 Acute ischemic heart disease, unspecified (principal); I10 Essential (primary) hypertension; R61 Generalized hyperhidrosis; J02.9 Acute pharyngitis, unspecified; E11.9 Type 2 diabetes mellitus without complications
CPT/HCPCS: 36415; 71045; 80053; 82947; 83880; 84484; 85025; 85379; 85610; 85730; 93005; 96361; 96374; 96375; 99285; J1644; J2405; J3010

== ENCOUNTER → 2023-10-06 13:09 | Outpatient (BNV) | payer MEDICAID, SELFPAY | PROVIDERS: Emergency Provider Emergency Medicine; Visit Provider Internal Medicine Cardiovascular Disease | DX: R07.9 Chest pain, unspecified (principal); R94.31 Abnormal electrocardiogram [ECG] [EKG]; I49.3 Ventricular premature depolarization | CPT/HCPCS: 93010 ==

== ENCOUNTER 2023-11-04 14:27 | Outpatient (AMB) | payer MEDICAID, SELFPAY ==
[2023-11-04 14:50] VITALS: BP 130/70; PULSE 68; BMI 31.6
--- NOTE | 2023-11-04 14:50 | MHC.OFFVIS ---
Vital Signs 11/04/23 14:50 Height 6 ft Weight 232 lb 12.93 oz BMI 31.6 BP 130/70 Blood Pressure Location Lt brachial Position Sitting Pulse 68 Pulse Source Monitor Intake Visit Reasons: 6m'th f/up Intake Note: 6 mth f/up/ left side chest pain when sleeping Flare Maker Required: No Accompanied by: Self / Same As Patient Allergies No Known Allergies [No Known Allergies*] Allergy (Verified 10/06/23 13:21) Medication List - Last Reconciled 11/04/23 by Bulmaro Rangel MD aspirin (Adult Low Dose Aspirin) 81 mg PO DAILY atorvastatin 80 mg PO BEDTIME carvedilol 6.25 mg PO BID cetirizine (Zyrtec) 10 mg PO DAILY colchicine 0.6 mg PO DAILY dapagliflozin propanediol 10 mg PO DAILY losartan 25 mg PO DAILY metformin 500 mg PO BID pantoprazole 40 mg PO DAILY ticagrelor 90 mg PO BID HPI Comments Details: 53-year-old gentleman here for follow-up. He was well seen in April 2019 when he presented at [facility] with syncope. Story was consistent with vasovagal syncope. He had a Holter monitor which showed 13,000 monomorphic PVCs. Nuclear stress testing which was unremarkable. He was referred for tilt-table testing but it appears due to COVID-19 pandemic he decided not to undergo tilt-table test. His returning for follow-up now because he had chest pain in the last year. He called our office with left-sided chest pain ongoing for 3 days. He said this lasted for approximately 3-4 days. There was also some reproducible discomfort in the left upper chest. He has not had any syncope but has noticed that if he looks down consistently then he gets very dizzy. He has seen Neurology and no obvious cause is found for this. Echocardiography has shown mild dilation of the right ventricle in some views. Overall function is normal. No LV dysfunction or valvular disease. He was referred to sleep medicine and was diagnosed with sleep apnea. He has started the CPAP. His blood pressure control is okay right now. He is on amlodipine 5 mg is saying that and other medication has been started which he does not know the name of. He will call us to update the new medication mean. He has not had any further syncopal episodes. He is denying chest pain or shortness of breath. 11/19/22: He returns for follow-up. He has stopped taking all his medications. Blood pressure in the office is elevated. He is saying that he was on multiple medications and was not feeling well and he has decided to stop taking all his medications. He is only taking the allergy medication at this point. He is exercising and playing basketball with his son and feels good. We had a detailed discussion about preventive aspects of being on antihypertensive therapy specially being a diabetic. Also a moderate intensity statin is indicated in him to prevent future cardiovascular events. 04/17/2023: He returns for follow-up. On last visit he stopped taking all his medications and was trying to diet and exercise and weight loss. We had a discussion at that time about antihypertensive therapy and starting statins but he wished to diet and exercise. He returns again and his blood pressure is elevated. Sitting at home his blood pressures are running in high 130s over 80s. He said he is starting a diabetes medication but does not remember the name of the medication. We again had a detailed discussion about blood pressure control and diabetes control. 11/04/23: He is here for follow-up. He got admitted to [facility] with chest discomfort and was noticed to have lateral ST elevation on ECG transiently with improvement in the EKG subsequent to that. Given ongoing symptoms and ECG changes he was transferred urgently to cardiac catheterization laboratory at [facility] where he underwent cardiac catheterization showing subtotally occluded circumflex artery which was treated with drug-eluting stent. Since then he has been started on multiple medications including antiplatelet therapy, atorvastatin, metformin and dapagliflozin. He also had some left-sided pleuritic chest discomfort and was started on colchicine by the ER with impression of pericarditis. He is saying he still gets left-sided discomfort if he lay on his left side only. Otherwise he does not get any symptoms. In any case he is tolerating medications currently. He has been clinically stable. COUNT INCLUDES THE [facility] Medical History (Updated 11/04/23 @ 15:28 by Bulmaro Rangel MD) Diabetes Palpitations Syncope Surgical History (Updated 11/04/23 @ 15:01 by Saskia Matta CMA) Hx of cardiac cath Hx of hernia repair H/O neck surgery Family History Father Myocardial infarct Diabetes CVD (cardiovascular disease) Mother Diabetes Social History Alcohol intake: never Patient Tobacco Use Status: Never used Tobacco Substance Use Type: Marijuana Review of Systems Const Denies chills, Denies fatigue, Denies fever(s), Denies frequent falls, Denies weakness, Denies weight gain and Denies weight loss ENT Denies dizziness Card Denies chest pain, Denies leg edema, Denies lightheadedness, Denies palpitations, Denies dyspnea and Denies dyspnea on exertion Resp Denies cough, Denies dyspnea and Denies dyspnea on exertion GI Denies hematochezia Musc Denies abnormal gait, Denies muscle weakness, Denies numbness, Denies radiating pain into limb and Denies tingling Neuro Denies abnormal gait, Denies dizziness, Denies frequent falls, Denies numbness, Denies tingling and Denies weakness Endo Denies fatigue and Denies palpitations Physical Exam Vital Signs: Last Vital Signs Pulse 68 11/04/23 14:50 BP 130/70 11/04/23 14:50 BMI result Body Mass Index 31.6 GENERAL APPEARANCE: in no acute distress, pleasant. NECK: no carotid bruit, no jugular venous distention. SKIN: no suspicious lesions, warm and dry. HEART: no murmurs, regular rate and rhythm. LUNGS: clear to auscultation bilaterally. ABDOMEN: soft, nontender. EXTREMITIES: no edema. PERIPHERAL PULSES: equal. NEUROLOGIC: No gross deficits, AAO X 3 Office Procedures EKG Details: Sinus rhythm 68 beats per minute, normal axis, inferior infarct, premature ventricular complexes, QTC 461 milliseconds. [id number], Complete Assessment & Plan Assessment & Plan (1) NSTEMI (non-ST elevated myocardial infarction): Code(s): I21.4 - Non-ST elevation (NSTEMI) myocardial infarction Category: Medical (2) Frequent PVCs: Code(s): I49.3 - Ventricular premature depolarization Category: Medical (3) Essential hypertension: Code(s): I10 - Essential (primary) hypertension Category: Medical Plan Pleasant 53 year gentleman who is here for follow-up. He is status post PCI to left circumflex artery. He has been doing well. Blood pressure is well controlled. He is on aspirin and Brilinta which should be continued for at least 1 year. After that we will probably consider putting him on Plavix monotherapy. We will arrange an echocardiogram in a month's time to assess ejection fraction. He has history of frequent premature ventricular complexes in the past. He continues to get PVCs on EKG with similar morphology as before. These were previously thought to be benign and I think we will continue to monitor for now. Thank you for allowing me to participate in the care of your patient. Please feel free to contact me if you have any questions. Orders: Orders CA echo transthorac w con 1 Month I21.4 - Non-ST elevation (NSTEMI) myocardial infarction Coding Level of Care Code Est Pt Level 4 (94530) Diagnoses NSTEMI (non-ST elevated myocardial infarction) I21.4 Frequent PVCs I49.3 Essential hypertension I10 CPT Codes EKG - CPT: 12555-[id number], Complete ([id number])
== END 2023-11-04 15:30 | disposition home or self-care (01) ==
PROVIDERS: PCP Nurse Practitioner Community Health; Referring Provider Nurse Practitioner Community Health; Visit Provider Internal Medicine Cardiovascular Disease
DX: I21.4 Non-ST elevation (NSTEMI) myocardial infarction (principal); I49.3 Ventricular premature depolarization; I10 Essential (primary) hypertension
CPT/HCPCS: 93010; 99214

== ENCOUNTER → 2023-11-04 14:27 | Outpatient (BNVA) | payer MEDICAID, SELFPAY | PROVIDERS: Visit Provider Internal Medicine Cardiovascular Disease | DX: I21.4 Non-ST elevation (NSTEMI) myocardial infarction (principal); I49.3 Ventricular premature depolarization; I10 Essential (primary) hypertension | CPT/HCPCS: 93005; 99212 ==